=== PATIENT | female | born 1995 | race Caucasian/White ===

== ENCOUNTER 2023-03-28 11:11 | Outpatient (CLI) | payer OTHER, SELFPAY ==
[2023-03-28 11:36] VITALS: BP 115/65; PULSE 107; RESP 16; TEMP 37.1
[2023-03-28 11:37] VITALS: PULSE 104; O2SAT 100
[2023-03-28 12:31] LABS: Basophils Percent Auto 0.2 % (0.0-3.0); Eosinophils Percent Auto 0.1 % (0.0-7.0); Hematocrit 34.3 % (33.0-51.0); Hemoglobin* 10.4 gm/dL (12.0-16.0); Immature Granulocytes Pct Auto 0.8 %; Mean Corpuscular HGB Conc 30 gm/dL (32-36); Mean Corpuscular Hemoglobin 25 pg (26-34); Mean Corpuscular Volume 82 fL (80-100); Monocytes Percent Auto 3.4 % (0.0-11.0); Neutrophils Percent Auto 79.5 % (42.0-72.0); Platelet Count* 245 K/uL (140-440); RDW Coefficient of Variation % 15.4 % (11.5-15.5); White Blood Count* 11.64 K/uL (4.50-11.00)
[2023-03-28 12:37] LABS: Slide Review Reflex No
[2023-03-28 12:41] LABS: Chloride* 102 mmol/L (96-114); Sodium* 136 mmol/L (135-149)
[2023-03-28 12:42] LABS: Potassium* 4.1 mmol/L (3.6-5.1)
[2023-03-28 12:44] LABS: Anion Gap 23 mEq/L (7-15); Carbon Dioxide* 11 mmol/L (20-32); Creatinine* 0.6 mg/dL (0.5-1.5); Estimated Glomerular Filt Rate 127 ml/min
[2023-03-28 12:45] LABS: Blood Urea Nitrogen* 5 mg/dL (5-24); Calcium* 9.1 mg/dL (8.4-10.6); Glucose* 71 mg/dL (60-115)
--- NOTE | 2023-03-28 13:25 | P.OBO_ITS ---
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 She had a fever and muscle aches last week, along with fatigue. She tested negative for COVID on an at home test. Fever has resolved, but she still has no appetite, has occasional nausea, and feels weak and lightheaded. She has not been eating or drinking much. She denies any contractions, bleeding, loss of fluid. Baby is moving well. Her has been otherwise notable for iron deficiency anemia. She was prescribed liquid iron, but she is not taking this regularly. When given a liter of fluid to drink, she vomited. Meds Home Medications and Allergies Home Medications Medication Instructions Recorded Confirmed Type No Known Home Medications 01/30/23 01/30/23 History Allergies Allergy/AdvReac Type Severity Reaction Status Date / Time Sulfa (Sulfonamide Allergy Severe Chest Pain Verified 01/30/23 12:45 Antibiotics) [facility] Social History Smoking Status: Never smoker History History 2 Elective abortions Para 1 Spontaneous abortions Hx # Term Pregnancies Ectopic pregnancies Hx # Pregnancies Multiple births Number of Living Children 1 OB - H&P: Exam Physical Exam Vital signs: Temp Pulse Resp BP Pulse Ox 98.8 F 107 H 16 115/65 100 03/28/23 11:36 03/28/23 11:36 03/28/23 11:36 03/28/23 11:36 03/28/23 11:37 Narrative: Physical exam: General: Lying in bed, appears pale and tired Psych: Alert and oriented x3, full affect HEENT: Normocephalic, atraumatic Heart: Slightly tachy but regular rhythm, no murmur, rub, or gallop Lungs: Clear to auscultation bilaterally Abdomen: Soft, nontender, gravid, EFW 4.5 lb Lower extremities: No edema or erythema tracing: Baseline 135, accelerations present, no decelerations, moderate variability. Labs Labs Laboratory Tests 03/28/23 Range/Units 12:25 WBC 11.64 H (4.50-11.00) K/uL RBC 4.20 (4.00-5.20) m/uL Hgb 10.4 L (12.0-16.0) gm/dL Hct 34.3 (33.0-51.0) % MCV 82 (80-100) fL MCH 25 L (26-34) pg MCHC 30 L (32-36) gm/dL RDW Coeff of Martha 15.4 (11.5-15.5) % Plt Count 245 (140-440) K/uL Neut % (Auto) 79.5 H (42.0-72.0) % Lymph % (Auto) 16.0 L (20-44) % [place] % (Auto) 3.4 (0.0-11.0) % Eos % (Auto) 0.1 (0.0-7.0) % Baso % (Auto) 0.2 (0.0-3.0) % Neut # (Auto) 9.30 H (1.7-7.0) K/uL Lymph # (Auto) 1.90 (0.90-2.90) K/uL [place] # (Auto) 0.40 (0.00-0.90) K/UL Eos # (Auto) 0.00 (0.00-0.50) K/uL Baso # (Auto) 0.00 (0.00-0.30) K/uL Abs Immat Gran (auto) 0.10 (0.00-0.30) K/uL Imm/Tot Granulo (auto) 0.8 % Sodium 136 (135-149) mmol/L Potassium 4.1 (3.6-5.1) mmol/L Chloride 102 (96-114) mmol/L Carbon Dioxide 11 L (20-32) mmol/L Anion Gap 23 H (7-15) mEq/L BUN 5 (5-24) mg/dL Creatinine 0.6 (0.5-1.5) mg/dL Estimated GFR 127 ml/min Glucose 71 (60-115) mg/dL Calcium 9.1 (8.4-10.6) mg/dL TSH Pending Assessment and Plan Assessment and plan (1) Lightheadedness: Status: Acute Assessment and Plan: I suspect this is related to a combination of little oral intake and anemia. She is to be given a liter of IV fluid. I also recommended that she begin taking liquid iron every other day. (2) Post viral debility: Status: Acute (3) : Status: Acute (4) Anemia complicating : Status: Acute
[2023-03-28] MEDS: LACTATED RINGERS 1000 ML 1,000 ML IV (13:35)
--- NOTE | 2023-03-28 13:46 | PC.OBNST ---
NST Note NST Note Start: 03/28/23 11:19 Freq: ONCE Status: Active Protocol: Document 03/28/23 13:45 CUDDYH (Rec: 03/28/23 13:46 [id number]) NST Note 2 Para (# of births) 1 EDC 05/04/23 Gestational Age In Weeks & Days 34 Weeks & 5 Days Patient Presented with Complaint(s) of Other Reactive Yes Appropriate for Gestational Age Yes NUVIA De La Garza Date 03/28/23 Reactive Yes Appropriate for Gestational Age Yes NUVIA Diaz Date 03/28/23 OB NST charge Yes Complete NST Note via Write Note Yes The provider's electronic signature indicates the NST is reactive/appropriate for gestational age. *Note to provider: If an addendum is required, open the patient's chart and click on the note under the Nurse/Allied Health tab.
== END 2023-03-28 14:39 | disposition home or self-care (01) ==
LOC: OB OUT 11:13 → OB 11:13
PROVIDERS: Visit Provider Obstetrics & Gynecology
DX: O99.013 Anemia complicating pregnancy, third trimester (principal); R42 Dizziness and giddiness; R53.81 Other malaise; B94.8 Sequelae of other specified infectious and parasitic diseases; Z34.90 Encounter for supervision of normal pregnancy, unspecified, unspecified trimester; Z3A.34 34 weeks gestation of pregnancy
CPT/HCPCS: 36415; 59025; 80048; 84443; 85025; 99213; J7120

== ENCOUNTER 2023-03-29 15:47 | Inpatient (IN) | payer OTHER, SELFPAY ==
[2023-03-29] VITALS (63 sets, daily range): BP systolic 97–114; BP diastolic 58–78; PULSE 78–120; RESP 18–34; TEMP 36.5–36.9; O2SAT 93–100; BMI 25.3
--- NOTE | 2023-03-29 16:13 | CRLHL7_ITS ---
For Patients: As a result of the Cures Act, medical imaging exams and procedure reports are released immediately into your electronic medical record. You may view this report before your referring provider. If you have questions, please contact your health care provider. INDICATION: Cough. TECHNIQUE: Chest radiographs, two views. COMPARISON: None. FINDINGS: Lines/Tubes/Devices: None. Mediastinum: Normal cardiac silhouette. Lungs: No focal consolidation. Pleura: No pleural effusions or pneumothorax. Bones: No acute osseous abnormalities. Old healed lower right-sided rib fractures. Upper Abdomen: Unremarkable. IMPRESSION: No acute cardiopulmonary process. Dictated by Tim Fernandez MD @ 03/29/2023 5:12:28 PM (Electronically Signed)
[2023-03-29 16:30] LABS: Lactate* 0.8 mmol/L (0.5-1.9)
[2023-03-29 16:31] LABS: Basophils Percent Auto 0.1 % (0.0-3.0); Eosinophils Percent Auto 0.1 % (0.0-7.0); Hematocrit 35.6 % (33.0-51.0); Hemoglobin* 10.8 gm/dL (12.0-16.0); Immature Granulocytes Pct Auto 1.3 %; Lymphocytes Percent Auto 13.4 % (20-44); Mean Corpuscular HGB Conc 30 gm/dL (32-36); Mean Corpuscular Hemoglobin 25 pg (26-34); Mean Corpuscular Volume 82 fL (80-100); Monocytes Percent Auto 4.8 % (0.0-11.0); Neutrophils Percent Auto 80.3 % (42.0-72.0); Platelet Count* 252 K/uL (140-440); RDW Coefficient of Variation % 15.6 % (11.5-15.5); Red Blood Count 4.36 m/uL (4.00-5.20); White Blood Count* 11.87 K/uL (4.50-11.00)
[2023-03-29 16:35] LABS: Slide Review Reflex No
[2023-03-29 16:46] LABS: Appearance Urine Slightly Cloudy (Clear); Bilirubin Urine 1+ (Negative); Blood Urine Negative (Negative); Color Urine Yellow (Yellow); Glucose Urine Negative (Negative); Ketones Urine 4+ (Negative); Leukocyte Esterase Urine Negative (Negative); Nitrite Urine Negative (Negative); Protein Urine 1+ (Negative); Specific Gravity Urine >= 1.030 (1.000-1.030); pH Urine 5.5 (5.0-8.5)
[2023-03-29] MEDS: ONDANSETRON 2 MG/ML inj 4 MG IVP (16:53)
[2023-03-29] MEDS: 0.9 % SODIUM CHLORIDE 1000 ml 1,000 ML IV ×3 (16:53→21:51)
[2023-03-29 16:54] LABS: Chloride* 111 mmol/L (96-114)
[2023-03-29 16:55] LABS: Sodium* 136 mmol/L (135-149)
[2023-03-29 16:56] LABS: Albumin* 4.2 g/dL (3.3-5.0)
[2023-03-29 16:57] LABS: Creatinine* 0.7 mg/dL (0.5-1.5); Est. Creatinine Clearance* 114.01; Estimated Glomerular Filt Rate 122 ml/min
[2023-03-29 16:57] LABS: Amphetamine Screen Urine Negative (Negative); Barbiturate Screen Urine Negative (Negative); Benzodiazepines Screen Urine Negative (Negative); Cannabinoid Screen Urine Negative (Negative); Cocaine Screen Urine Negative (Negative); Methadone Screen Urine Negative (Negative); Methamphetamines Screen Urine Negative (Negative); Opiate Screen Urine Negative (Negative); Oxycodone Screen Urine Negative (Negative); Phencyclidine Screen Urine Negative (Negative); RBC Urine 0-2 (0-2); Tricyclic Antidepressant Urine Negative (Negative); WBC Urine 0-2 (0-5)
[2023-03-29 16:58] LABS: Blood Urea Nitrogen* 6 mg/dL (5-24); Glucose* 76 mg/dL (60-115)
[2023-03-29 16:58] LABS: Bacteria Urine Few; Squamous Epithelial Cell Urine Few (None-Few)
[2023-03-29 16:59] LABS: Alanine Aminotransferase* 16 U/L (4-35); Alkaline Phosphatase* 150 U/L (40-150); Aspartate Amino Transferase* 30 U/L (12-35); Bilirubin Direct* 0.3 mg/dL (0.0-0.5); Bilirubin Total* 0.8 mg/dL (0.1-1.5); Calcium* 9.2 mg/dL (8.4-10.6); Mono Screen* Negative (Negative); Total Protein* 8.8 g/dL (6.0-8.3)
[2023-03-29 17:01] LABS: PCR FLU A Negative PCR FLU A (Negative); PCR FLU B Negative PCR FLU B (Negative); PCR RSV Negative PCR RSV (Negative); SARS PCR* Negative SARS-CoV-2 (Negative)
[2023-03-29 17:01] LABS: C Reactive Protein* 1.3 mg/dL (0.5-1.0)
[2023-03-29 17:11] LABS: Anion Gap 20 mEq/L (7-15); Carbon Dioxide* < 5 mmol/L (20-32)
[2023-03-29 17:15] LABS: Procalcitonin* 0.07 ng/mL (<0.50)
[2023-03-29 17:34] LABS: Ethanol* < 0.01 % (0.01-0.03)
[2023-03-29 17:59] LABS: HCO3 VBG 7 mmol/L (21-28); PCO2 VBG 20 mmHG (40-50); PO2 VBG 41.4 mmHG (25-47)
[2023-03-29 18:05] LABS: Lipase* 165 U/L (23-300)
--- NOTE | 2023-03-29 18:08 | ED_ITS ---
HPI - Weakness General Date Seen: 03/29/23 Chief complaint: Weakness Stated complaint: fatigue, vomiting Time Seen by Provider: 03/29/23 15:55 Source: patient and family Mode of arrival: ambulatory Limitations: no limitations History of Present Illness HPI Narrative: Patient is a 27-year-old female, who is a at 34 weeks, was seen yesterday by Obstetrics, given 1 L of fluid on the floor, and then discharged home she continues to have nausea, vomiting, anywhere from 3-6 times in inability to take anything orally. Feels very weak come moving around, she denies a current fever, but mentions to me a week ago she had a fever up to 103.9. She has a slight cough, and multiple family members have this currently, she tested negative for COVID a week ago when she had the fever. She denies any abdominal pain at all, feels the baby moving, no diarrhea, no dysuria or frequency. Of urination. There is no rashes. She denies a sore throat, headache, neck stiffness, pain. She only takes pill once a day, she is not taking any other medications such as salicylates, she does not use alcohol, she has not been drinking any other or taking other herbal remedies. Denies any chest pain, shortness of breath, but she is very easily fatigued. Related Data Home Medications Medication Instructions Recorded Confirmed No Known Home Medications 01/30/23 01/30/23 Allergies Allergy/AdvReac Type Severity Reaction Status Date / Time Sulfa (Sulfonamide Allergy Severe Chest Pain Verified 03/29/23 15:55 Antibiotics) Review of Systems Status of ROS: Reports: 10 or more systems reviewed and unremarkable except as noted in History and below [facility] Social History Smoking Status: Never smoker How often do you have a drink containing alcohol: never AUDIT-C Alcohol total score: 0 Non-prescribed substance use: denies use Exam Narrative: Exam Narrative: Patient is seen in room 3 she is in no apparent distress, pupils are equal round reactive to light, there is no nystagmus or TMs are normal bilaterally, no meningismus, she does see kind of pale. No lymphadenopathy anterior posterior chains. Neck is supple, chest is good air entry bilateral with no wheezing crackles noted heart sounds no clicks murmurs or gallops her abdomen is soft and gravid, there is a little bit of a protrude and umbilicus. Bowel sounds are normal. She moves all extremities independently and well. No CVA tenderness. Skin reveals no petechiae rashes. Neurologically intact with no clonus. Const: Vital Signs, click to edit/add: Vital Signs - 24 hr 03/29/23 15:54 03/29/23 16:48 03/29/23 16:49 Temperature 97.8 F Pulse Rate [Right Pulse Oximeter] 78 105 H 112 H Pulse Rate [orthos tatic lying Left P ulse Oximeter] Pulse Rate [orthos tatic sitting Left Pulse Oximeter] Pulse Rate [orthos tatic standing Lef t Pulse Oximeter] Respiratory Rate 18 22 Blood Pressure [Ri ght Upper Arm] 108/69 107/74 112/78 Blood Pressure [or thostatic lying Ri ght Arm] Blood Pressure [or thostatic sitting Right Arm] Blood Pressure [or thostatic standing Right Arm] Pulse Oximetry 100 98 100 Oxygen Delivery Me thod Room Air 03/29/23 16:50 03/29/23 16:50 Temperature Pulse Rate [Right Pulse Oximeter] 120 H Pulse Rate [orthos tatic lying Left P ulse Oximeter] 105 H Pulse Rate [orthos tatic sitting Left Pulse Oximeter] 112 H Pulse Rate [orthos tatic standing Lef t Pulse Oximeter] 120 H Respiratory Rate Blood Pressure [Ri ght Upper Arm] 101/76 Blood Pressure [or thostatic lying Ri ght Arm] 107/74 Blood Pressure [or thostatic sitting Right Arm] 112/78 Blood Pressure [or thostatic standing Right Arm] 110/76 Pulse Oximetry 100 Oxygen Delivery Me thod Documenting provider has reviewed patient's vital signs: yes Course Course ED Course: So to the patient her partner I would recommend hospitalization and fluids at this point. I am not sure what is going on causing her acidosis. If this is purely from dehydration and poor oral intake. I consulted for admission from Obstetrics, I also suggested and agreed we will have from Internal Medicine see her. Please note I did do an ultrasound point of care echo. This showed globally normal heart function. No pericardial effusion, no right ventricular enlargement, but she did have a positive sniffing test of the proximal IVC indicating dehydration. Vital Signs Vital signs: Initial Vital Signs Temperature 97.8 F 03/29/23 15:54 Temperature Source Temporal Artery Scan 03/29/23 15:54 Pulse Rate 78 03/29/23 15:54 Pulse Rhythm Regular 03/29/23 15:54 Pulse Strength 3+ Normal 03/29/23 15:54 Respiratory Rate 18 03/29/23 15:54 Blood Pressure 108/69 03/29/23 15:54 Blood Pressure Mean 82 03/29/23 15:54 Blood Pressure Position Sitting 03/29/23 15:54 Pulse Oximetry 100 03/29/23 15:54 Oxygen Delivery Method Room Air 03/29/23 15:54 Vital Signs Temperature 97.8 F 03/29/23 15:54 Pulse Rate 78 03/29/23 15:54 Respiratory Rate 18 03/29/23 15:54 Blood Pressure 108/69 03/29/23 15:54 Pulse Oximetry 100 03/29/23 15:54 Oxygen Delivery Method Room Air 03/29/23 15:54 Temperature 97.8 F 03/29/23 15:54 Pulse Rate 105 H 03/29/23 16:50 Respiratory Rate 22 03/29/23 16:48 Blood Pressure 107/74 03/29/23 16:50 Pulse Oximetry 100 03/29/23 16:50 Oxygen Delivery Method Room Air 03/29/23 15:54 MDM - Weakness MDM Narrative Medical decision making narrative: Life-threatening differential diagnosis considered include stroke, coronary artery disease, pneumonia, and heart failure. Other differential diagnosis include but are not limited to electrolyte imbalances, anemia, medication reactions, and urinary tract infection Medical Records Attestation: I reviewed the patient's medical records. Lab Data Attestation: I reviewed the patient's lab results. Lab results narrative: Lab results show, an acidosis, with a total CO2 less than 5. White count slightly elevated 11.8700 in and not that worried about this hemoglobin was low normal at 10.8, venous blood gas as we tried to get an it arterial blood gas, this showed that she is acidotic. lactate was not elevated. Labs: Lab Results 03/29/23 03/29/23 03/29/23 Range/Units 16:14 16:25 16:40 WBC 11.87 H (4.50-11.00) K/uL RBC 4.36 (4.00-5.20) m/uL Hgb 10.8 L (12.0-16.0) gm/dL Hct 35.6 (33.0-51.0) % MCV 82 (80-100) fL MCH 25 L (26-34) pg MCHC 30 L (32-36) gm/dL RDW Coeff of Martha 15.6 H (11.5-15.5) % Plt Count 252 (140-440) K/uL Neut % (Auto) 80.3 H (42.0-72.0) % Lymph % (Auto) 13.4 L (20-44) % [place] % (Auto) 4.8 (0.0-11.0) % Eos % (Auto) 0.1 (0.0-7.0) % Baso % (Auto) 0.1 (0.0-3.0) % Neut # (Auto) 9.50 H (1.7-7.0) K/uL Lymph # (Auto) 1.60 (0.90-2.90) K/uL [place] # (Auto) 0.60 (0.00-0.90) K/UL Eos # (Auto) 0.00 (0.00-0.50) K/uL Baso # (Auto) 0.00 (0.00-0.30) K/uL Abs Immat Gran (auto) 0.20 (0.00-0.30) K/uL Imm/Tot Granulo (auto) 1.3 % VBG pH (7.32-7.43) VBG pCO2 (40-50) mmHG VBG pO2 (25-47) mmHG VBG HCO3 (21-28) mmol/L Sodium 136 (135-149) mmol/L Potassium 4.0 (3.6-5.1) mmol/L Chloride 111 (96-114) mmol/L Carbon Dioxide < 5 L* (20-32) mmol/L Anion Gap 20 H (7-15) mEq/L BUN 6 (5-24) mg/dL Creatinine 0.7 (0.5-1.5) mg/dL Estimated Creat Clear 114.01 Estimated GFR 122 ml/min Glucose 76 (60-115) mg/dL Lactate 0.8 (0.5-1.9) mmol/L Calcium 9.2 (8.4-10.6) mg/dL Total Bilirubin 0.8 (0.1-1.5) mg/dL Direct Bilirubin 0.3 (0.0-0.5) mg/dL AST 30 (12-35) U/L ALT 16 (4-35) U/L Alkaline Phosphatase 150 (40-150) U/L C-Reactive Protein 1.3 H (0.5-1.0) mg/dL Total Protein 8.8 H (6.0-8.3) g/dL Albumin 4.2 (3.3-5.0) g/dL Lipase 165 (23-300) U/L Procalcitonin 0.07 (<0.50) ng/mL Urine Color Yellow (Yellow) Urine Appearance Slightly Cloudy A (Clear) Urine pH 5.5 (5.0-8.5) Ur Specific [place] >= 1.030 (1.000-1.030) Urine Protein 1+ A (Negative) Urine Glucose (UA) Negative (Negative) Urine Ketones 4+ A (Negative) Urine Blood Negative (Negative) Urine Nitrite Negative (Negative) Urine Bilirubin 1+ A (Negative) Urine Urobilinogen 1.0 (0.2-1.0) Ur Leukocyte Esterase Negative (Negative) Urine RBC 0-2 (0-2) Urine WBC 0-2 (0-5) Ur Squamous Epith Cells Few (None-Few) Urine Bacteria Few A (None) Urine Opiates Screen Negative (Negative) Ur Oxycodone Screen Negative (Negative) Urine Methadone Screen Negative (Negative) Ur Propoxyphene Screen Negative (Negative) Ur Barbiturates Screen Negative (Negative) U Tricyclic Antidepress Negative (Negative) Ur Phencyclidine Scrn Negative (Negative) Ur Amphetamines Screen Negative (Negative) U Methamphetamines Scrn Negative (Negative) U Benzodiazepines Scrn Negative (Negative) Urine Cocaine Screen Negative (Negative) U Marijuana (THC) Screen Negative (Negative) Ur Drug Screen Comment See Note Ethyl Alcohol < 0.01 L (0.01-0.03) % SARS-CoV-2 (PCR) Negative SARS-CoV-2 (Negative) Monoscreen Negative (Negative) Influenza Type A (PCR) Negative PCR FLU A (Negative) Influenza Type B (PCR) Negative PCR FLU B (Negative) RSV (PCR) Negative PCR RSV (Negative) Lab Acknowledgement Test Added POC Troponin I (0.01-0.04) ng/ml 03/29/23 03/29/23 03/29/23 Range/Units 17:12 17:54 17:55 WBC (4.50-11.00) K/uL RBC (4.00-5.20) m/uL Hgb (12.0-16.0) gm/dL Hct (33.0-51.0) % MCV (80-100) fL MCH (26-34) pg MCHC (32-36) gm/dL RDW Coeff of Martha (11.5-15.5) % Plt Count (140-440) K/uL Neut % (Auto) (42.0-72.0) % Lymph % (Auto) (20-44) % [place] % (Auto) (0.0-11.0) % Eos % (Auto) (0.0-7.0) % Baso % (Auto) (0.0-3.0) % Neut # (Auto) (1.7-7.0) K/uL Lymph # (Auto) (0.90-2.90) K/uL [place] # (Auto) (0.00-0.90) K/UL Eos # (Auto) (0.00-0.50) K/uL Baso # (Auto) (0.00-0.30) K/uL Abs Immat Gran (auto) (0.00-0.30) K/uL Imm/Tot Granulo (auto) % VBG pH 7.170 L* (7.32-7.43) VBG pCO2 20 L (40-50) mmHG VBG pO2 41.4 (25-47) mmHG VBG HCO3 7 L (21-28) mmol/L Sodium (135-149) mmol/L Potassium (3.6-5.1) mmol/L Chloride (96-114) mmol/L Carbon Dioxide (20-32) mmol/L Anion Gap (7-15) mEq/L BUN (5-24) mg/dL Creatinine (0.5-1.5) mg/dL Estimated Creat Clear Estimated GFR ml/min Glucose (60-115) mg/dL Lactate (0.5-1.9) mmol/L Calcium (8.4-10.6) mg/dL Total Bilirubin (0.1-1.5) mg/dL Direct Bilirubin (0.0-0.5) mg/dL AST (12-35) U/L ALT (4-35) U/L Alkaline Phosphatase (40-150) U/L C-Reactive Protein (0.5-1.0) mg/dL Total Protein (6.0-8.3) g/dL Albumin (3.3-5.0) g/dL Lipase (23-300) U/L Procalcitonin (<0.50) ng/mL Urine Color (Yellow) Urine Appearance (Clear) Urine pH (5.0-8.5) Ur Specific [place] (1.000-1.030) Urine Protein (Negative) Urine Glucose (UA) (Negative) Urine Ketones (Negative) Urine Blood (Negative) Urine Nitrite (Negative) Urine Bilirubin (Negative) Urine Urobilinogen (0.2-1.0) Ur Leukocyte Esterase (Negative) Urine RBC (0-2) Urine WBC (0-5) Ur Squamous Epith Cells (None-Few) Urine Bacteria (None) Urine Opiates Screen (Negative) Ur Oxycodone Screen (Negative) Urine Methadone Screen (Negative) Ur Propoxyphene Screen (Negative) Ur Barbiturates Screen (Negative) U Tricyclic Antidepress (Negative) Ur Phencyclidine Scrn (Negative) Ur Amphetamines Screen (Negative) U Methamphetamines Scrn (Negative) U Benzodiazepines Scrn (Negative) Urine Cocaine Screen (Negative) U Marijuana (THC) Screen (Negative) Ur Drug Screen Comment Ethyl Alcohol (0.01-0.03) % SARS-CoV-2 (PCR) (Negative) Monoscreen (Negative) Influenza Type A (PCR) (Negative) Influenza Type B (PCR) (Negative) RSV (PCR) (Negative) Lab Acknowledgement Test Added POC Troponin I 0.00 L (0.01-0.04) ng/ml ABG Data ABG results: Venous blood gas shows she is acidotic, with hyperventilation compensation. Attestation: I personally reviewed and interpreted this ABG as follows: Imaging Data Chest x-ray: Attestation: I have reviewed the pertinent imaging results. My impression: No acute findings Radiologist's impression: No acute finding seen by Radiology ECG Data Attestation: I personally reviewed and interpreted this ECG as follows: ECG interpretation date: 03/29/23 Prior ECG tracings: not available for review Interpretation: EKG shows normal sinus rhythm, with a normal QT. mild tachycardia at 99. Discharge Plan Discharge Clinical Impression: Acute dehydration, , Metabolic acidosis Patient Disposition: Admit to OB Condition: Stable
[2023-03-29] MEDS: LACTATED RINGERS 1000 ML 1,000 ML 125 ML IV (18:31)
--- NOTE | 2023-03-29 19:02 | PM.OBHPAP1 ---
OB - H&P; HPI Antepartum History of Present Illness Time Seen by Provider: 19:02 Date Seen: 03/29/23 Chief complaint: fatigue, vomiting Narrative: Tri Lao is a 27 year old female at 34w6d by LMP (BERTRAM 05/04/23). She is receiving care with a home midwifery service in [place]. She presented yesterday to L&D for lightheadedness and malaise. She had a fever and muscle aches last week, along with fatigue. She was given 1L of IV fluid with improvement of symptoms. Her labs were significant for mild anemia to 10.4 and an anion gap of 23. Given her improvement in symptoms, she was discharged home. Patient return to the ED today with worsening nausea, lightheadedness, fatigue, and severe weakness. She had her initial evaluation in the emergency room. Labs today redemonstrated mild anemia at 10.8. However, labs were significant for anion gap metabolic acidosis. Urinalysis consistent with severe dehydration with 4+ ketones. She received 2L of NS in the ED. Toxicology negative. Viral panel also negative. LFTs within normal limits. CXRay within normal limits. I received a call from the ED requesting inpatient admission for her as they believe she'll need continued fluid management and to make sure she's improving. I did request a medicine consult for management of her anion gap metabolic acidosis. She was initially admitted to OB service with medicine consult. She reported the last time she ate anything was Friday. Her son was sick with a viral illness last week but no one else in the family is sick. She denies abnormal food, diarrhea, constipation, or fever. She has no known history of diabetes outside of or during . Although it is unclear if she's been screened for diabetes during any of her as she can not recall taking Glucola. I did find her records that showed 1 hr gtt was performed on 02/18/2023 with normal result (106 mg/dL). I ordered a repeat set of labs on admission to L&D and her labs were worsening. Patient requires intensive fluid management and an insulin drip. Discussed with rooming house inspector and our hospitalist Dr. Duron about her condition and where the best place for her to get 1:1 nursing care and treatment. I was informed that our CCU would be able to manage her condition. Dr. Duron kindly accepted the transfer and will be managing her euglycemic DKA as primary. OB will follow for recommendations regarding status/monitoring. Active movement. Denies Ctx, LOF, vaginal bleeding or abnormal vaginal discharge. Meds Home Medications and Allergies Home Medications Medication Instructions Recorded Confirmed Type No Known Home Medications 01/30/23 01/30/23 History Allergies Allergy/AdvReac Type Severity Reaction Status Date / Time Sulfa (Sulfonamide Allergy Severe Chest Pain Verified 03/29/23 15:55 Antibiotics) OB - H&P: Exam Physical Exam: Vital signs: Temp Pulse Resp BP Pulse Ox O2 Del Method 98.4 F 90 22 114/65 99 Room Air 03/29/23 18:31 03/29/23 18:31 03/29/23 18:31 03/29/23 18:31 03/29/23 18:45 03/29/23 15:54 Narrative: Physical exam: General: Acute distress, lethargic, grimacing with discomfort. Psych: Alert and oriented x4. HEENT: Normocephalic, atraumatic Neck: No cervical adenopathy, no thyromegaly Heart: Tachycardic. No murmur rub or gallop Lungs: Clear to auscultation bilaterally. Tachypnea. Abdomen: Appropriately gravid. Normoactive bowel sounds, soft, no tenderness, rebound, or guarding, no masses, no hepatosplenomegaly Back: No CVA tenderness bilaterally. Skin: Pallor. No lesions or rashes Lower extremities: No edema or erythema Pelvic exam: Deferred OB - Results Labs Labs: Short CBC 03/29/23 Range/Units 16:25 WBC 11.87 H (4.50-11.00) K/uL Hgb 10.8 L (12.0-16.0) gm/dL Hct 35.6 (33.0-51.0) % Plt Count 252 (140-440) K/uL BMP 03/29/23 16:25 Sodium 136 Potassium 4.0 Chloride 111 Carbon Dioxide < 5 L* BUN 6 Creatinine 0.7 Glucose 76 Calcium 9.2 Liver Function 03/29/23 Range/Units 16:25 Total Bilirubin 0.8 (0.1-1.5) mg/dL Direct Bilirubin 0.3 (0.0-0.5) mg/dL AST 30 (12-35) U/L ALT 16 (4-35) U/L Alkaline Phosphatase 150 (40-150) U/L Albumin 4.2 (3.3-5.0) g/dL Urine 03/29/23 Range/Units 16:40 Urine Color Yellow (Yellow) Urine Appearance Slightly Cloudy A (Clear) Urine pH 5.5 (5.0-8.5) Ur Specific [place] >= 1.030 (1.000-1.030) Urine Protein 1+ A (Negative) Urine Glucose (UA) Negative (Negative) OB - A/P Antepartum Assessment and Plan (1) Metabolic acidosis: Problem details: - euglycemic ketoacidosis Status: Acute (2) : Problem details: - on 03/29/2023 34.6 wks gestation by LMP - OB monitoring heart tones Status: Acute (3) Acute dehydration: Status: Acute (4) Anemia complicating : Status: Acute (5) Nausea & vomiting: Problem details: - likely due to ketoacidosis - check stool for H. Pylori Ag Status: Acute Assessment and Plan: - Reglan 10mg Q6H - Ondansetron 4mg Q6H PRN Plan Wellbeing NST: Initially with a couple of lates but reactive and reassuring after IV fluid and D5W was started. 130s bpm, moderate variability, multiple qualifying accels. [place]: Overall quiescent. Plan: Continuous monitoring until acidosis has resolved. Then, can consider QD NST. status is currently reactive and reassuring. Regardless, I would not operate on patient while she is severely acidotic as that would put her at high risk for mortality. I do not recommend BMZ series as she is beyond 34 weeks and high potency steroids could worsen patient's ketoacidosis. The risks outweigh the benefits for late term steroids.
[2023-03-29] MEDS: METOCLOPRAMIDE HCL 5 MG/ML INJ 10 MG IVP (20:00)
[2023-03-29] MEDS: 5 % DEXTROSE IN LAC RINGER'S 1,000 ML 125 ML IV ×2 (20:06→21:40)
--- NOTE | 2023-03-29 20:08 | P.IMCN_ITS ---
Date of Consult Patient: [facility] Patient Consult date: 03/29/23 Requesting Physician: [facility] Primary Care Provider: Not a Local Provider Consult Narrative Reason for consult: Persistent nausea and vomiting, euglycemic ketoacidosis Narrative: Tri Lao is a 27 year old woman at 34 6/7 weeks gestation by LMP, normally healthy, who presents with persistent nausea, intermittent vomiting, weakness, decreased oral intake. Has malaise and lightheadedness. Was seen yesterday by Dr. Copeland, nut sheller machine operator, who administered 1 L of IV fluids and discharged her home. Because the patient's symptoms are persistent she presents for reassessment. In our emergency department patient is found to have a metabolic acidosis with a venous blood gas demonstrating a pH of 7.17, pCO2 low at 20, PO2 41, HC03 of 7. She has a compensated metabolic acidosis with an anion gap of 20. Respiratory rate at rest is 22. Appears hypovolemic, with resting tachycardia. Has 4+ ketones in the urine. Does not have lactic acidosis. Has not consumed any alcohol. Denies ingestion of methanol, ethylene glycol, salicylates, toluene, diethylene glycol, propylene glycol. Denies any other home remedies or herbal preparations. Taking her multivitamin. Has not been taking her liquid iron supplementation routinely. Has not had diarrhea. Has not had renal di sorders previously. Review of Systems Status of ROS: Reports: 10 or more systems reviewed and unremarkable except as noted in History and below Narrative: Had a fever up to 103.9? F as recently as a week ago but that has since totally resolved. Had slight dry cough which has also resolved. Tested negative for COVID antigen in her home 1 week ago. Not exposed to others with COVID-19 either. Not exposed to others with other illnesses at this time that she is aware of. Denies myalgias or arthralgias. Has had intermittent headache. No rashes. Denies neurologic changes. Denies stiff neck. Denies chest heaviness, pressure, tightness, or pain. Denies syncope or near- syncope. Has had some lightheaded episodes particularly when trying to get up lately. Denies vertigo or dizziness. Has had a sense of her breathing feeling rapid. Denies dyspnea per se. Has not had icterus or jaundice. Has not had dark urine or randee-colored stools. Again denies diarrhea. Denies dysuria, urgency, frequency, hematuria. Denies trauma, injury, blood loss. No recent travel. No history of diabetes. No history of other metabolic disorder. [facility] Medical History ?Z34.90 - Encounter for supervision of normal , unspecified, unspecified trimester (ICD-10) Anemia complicating ?O99.019 - Anemia complicating , unspecified trimester (ICD-10) Social History Smoking Status: Never smoker How often do you have a drink containing alcohol: never AUDIT-C Alcohol total score: 0 Non-prescribed substance use: denies use Meds Home Medications and Allergies Home Medications Medication Instructions Recorded Confirmed Type No Known Home Medications 01/30/23 01/30/23 History Home Medication Comments: 1. multivitamin once daily. 2. Liquid iron for iron deficiency anemia. Allergies Allergy/AdvReac Type Severity Reaction Status Date / Time Sulfa (Sulfonamide Allergy Severe Chest Pain Verified 03/29/23 15:55 Antibiotics) Exam Narrative: Exam Narrative: Examined patient in her hospital room. Appears ill but not toxic. Vision and hearing are normal. Alert and oriented to self, place, time, situation. Friendly, cooperative, articulate. Mood and affect are congruent. Appropriately anxious. No icterus or conjunctival injection. Conjugate gaze. Dentition in fair repair. Dry buccal mucosa. Midline nasal septum. Neck is supple. Midline trachea. No head and neck lymphadenopathy. Lungs are clear to auscultation. No wheezing, rhonchi, or rales. Respiratory rate 22 at rest on room air. Heart tones with regular rhythm, normal S1-S2. Heart rate 110 at rest. Abdomen with active bowel sounds, soft. . heart monitors in place. Extremities without edema. Skin is warm, dry, intact. No petechiae, jaundice, rashes, cyanosis. No focal motor neurologic deficits. Cranial nerves 3-12 grossly normal. Const: Vital Signs, click to edit/add: Vital Signs - 24 hr 03/29/23 15:54 03/29/23 16:48 03/29/23 16:49 Temperature 97.8 F Pulse Rate Pulse Rate [Right Pulse Oximeter] 78 105 H 112 H Pulse Rate [orthos tatic lying Left P ulse Oximeter] Pulse Rate [orthos tatic sitting Left Pulse Oximeter] Pulse Rate [orthos tatic standing Lef t Pulse Oximeter] Respiratory Rate 18 22 Blood Pressure Blood Pressure [Ri ght Upper Arm] 108/69 107/74 112/78 Blood Pressure [or thostatic lying Ri ght Arm] Blood Pressure [or thostatic sitting Right Arm] Blood Pressure [or thostatic standing Right Arm] Pulse Oximetry 100 98 100 Oxygen Delivery Me thod Room Air 03/29/23 16:50 03/29/23 16:50 03/29/23 17:00 Temperature Pulse Rate Pulse Rate [Right Pulse Oximeter] 120 H 90 Pulse Rate [orthos tatic lying Left P ulse Oximeter] 105 H Pulse Rate [orthos tatic sitting Left Pulse Oximeter] 112 H Pulse Rate [orthos tatic standing Lef t Pulse Oximeter] 120 H Respiratory Rate Blood Pressure Blood Pressure [Ri ght Upper Arm] 101/76 100/58 L Blood Pressure [or thostatic lying Ri ght Arm] 107/74 Blood Pressure [or thostatic sitting Right Arm] 112/78 Blood Pressure [or thostatic standing Right Arm] 110/76 Pulse Oximetry 100 98 Oxygen Delivery Me thod 03/29/23 18:00 03/29/23 18:31 03/29/23 18:45 Temperature 98.2 F 98.4 F Pulse Rate 90 Pulse Rate [Right Pulse Oximeter] 94 Pulse Rate [orthos tatic lying Left P ulse Oximeter] Pulse Rate [orthos tatic sitting Left Pulse Oximeter] Pulse Rate [orthos tatic standing Lef t Pulse Oximeter] Respiratory Rate 22 Blood Pressure 114/65 Blood Pressure [Ri ght Upper Arm] 101/61 Blood Pressure [or thostatic lying Ri ght Arm] Blood Pressure [or thostatic sitting Right Arm] Blood Pressure [or thostatic standing Right Arm] Pulse Oximetry 98 98 99 Oxygen Delivery Me thod 03/29/23 19:09 03/29/23 19:14 03/29/23 19:19 Temperature Pulse Rate Pulse Rate [Right Pulse Oximeter] Pulse Rate [orthos tatic lying Left P ulse Oximeter] Pulse Rate [orthos tatic sitting Left Pulse Oximeter] Pulse Rate [orthos tatic standing Lef t Pulse Oximeter] Respiratory Rate Blood Pressure Blood Pressure [Ri ght Upper Arm] Blood Pressure [or thostatic lying Ri ght Arm] Blood Pressure [or thostatic sitting Right Arm] Blood Pressure [or thostatic standing Right Arm] Pulse Oximetry 98 98 97 Oxygen Delivery Me thod 03/29/23 19:24 03/29/23 19:29 03/29/23 19:34 Temperature Pulse Rate Pulse Rate [Right Pulse Oximeter] Pulse Rate [orthos tatic lying Left P ulse Oximeter] Pulse Rate [orthos tatic sitting Left Pulse Oximeter] Pulse Rate [orthos tatic standing Lef t Pulse Oximeter] Respiratory Rate Blood Pressure Blood Pressure [Ri ght Upper Arm] Blood Pressure [or thostatic lying Ri ght Arm] Blood Pressure [or thostatic sitting Right Arm] Blood Pressure [or thostatic standing Right Arm] Pulse Oximetry 97 98 99 Oxygen Delivery De thod 03/29/23 19:39 03/29/23 19:44 03/29/23 19:49 Temperature Pulse Rate Pulse Rate [Right Pulse Oximeter] Pulse Rate [orthos tatic lying Left P ulse Oximeter] Pulse Rate [orthos tatic sitting Left Pulse Oximeter] Pulse Rate [orthos tatic standing Lef t Pulse Oximeter] Respiratory Rate Blood Pressure Blood Pressure [Ri ght Upper Arm] Blood Pressure [or thostatic lying Ri ght Arm] Blood Pressure [or thostatic sitting Right Arm] Blood Pressure [or thostatic standing Right Arm] Pulse Oximetry 99 98 97 Oxygen Delivery De thod 03/29/23 19:54 03/29/23 19:59 03/29/23 20:04 Temperature Pulse Rate Pulse Rate [Right Pulse Oximeter] Pulse Rate [orthos tatic lying Left P ulse Oximeter] Pulse Rate [orthos tatic sitting Left Pulse Oximeter] Pulse Rate [orthos tatic standing Lef t Pulse Oximeter] Respiratory Rate Blood Pressure Blood Pressure [Ri ght Upper Arm] Blood Pressure [or thostatic lying Ri ght Arm] Blood Pressure [or thostatic sitting Right Arm] Blood Pressure [or thostatic standing Right Arm] Pulse Oximetry 98 98 98 Oxygen Delivery Me thod 03/29/23 20:07 Temperature Pulse Rate 99 Pulse Rate [Right Pulse Oximeter] Pulse Rate [orthos tatic lying Left P ulse Oximeter] Pulse Rate [orthos tatic sitting Left Pulse Oximeter] Pulse Rate [orthos tatic standing Lef t Pulse Oximeter] Respiratory Rate 22 Blood Pressure 105/67 Blood Pressure [Ri ght Upper Arm] Blood Pressure [or thostatic lying Ri ght Arm] Blood Pressure [or thostatic sitting Right Arm] Blood Pressure [or thostatic standing Right Arm] Pulse Oximetry 98 Oxygen Delivery Me thod Documenting provider has reviewed patient's vital signs: yes Labs Labs: Short CBC 03/29/23 Range/Units 16:25 WBC 11.87 H (4.50-11.00) K/uL Hgb 10.8 L (12.0-16.0) gm/dL Hct 35.6 (33.0-51.0) % Plt Count 252 (140-440) K/uL BMP 03/29/23 16:25 Sodium 136 Potassium 4.0 Chloride 111 Carbon Dioxide < 5 L* BUN 6 Creatinine 0.7 Glucose 76 Calcium 9.2 Liver Function 03/29/23 Range/Units 16:25 Total Bilirubin 0.8 (0.1-1.5) mg/dL Direct Bilirubin 0.3 (0.0-0.5) mg/dL AST 30 (12-35) U/L ALT 16 (4-35) U/L Alkaline Phosphatase 150 (40-150) U/L Albumin 4.2 (3.3-5.0) g/dL Urine 03/29/23 Range/Units 16:40 Urine Color Yellow (Yellow) Urine Appearance Slightly Cloudy A (Clear) Urine pH 5.5 (5.0-8.5) Ur Specific [place] >= 1.030 (1.000-1.030) Urine Protein 1+ A (Negative) Urine Glucose (UA) Negative (Negative) Assessment and Plan Assessment and plan (1) Nausea & vomiting: Problem comment: - likely due to ketoacidosis - check stool for H. Pylori Ag Status: Acute (2) Ketoacidosis: Problem comment: - Euglycemic ketoacidosis, due to hypovolemia and - Does not have diagnosis of diabetes mellitus Status: Acute (3) Metabolic acidosis: Problem comment: - euglycemic ketoacidosis Status: Acute (4) : Problem comment: - on 35 wks gestation by LMP - OB monitoring heart tones Status: Acute (5) Acute dehydration: Status: Acute (6) Anemia complicating : Status: Acute Plan 1. Reviewed impression with patient, her nurses, and her nut sheller machine operator Dr. Fernandez. Recommend transfer to the intensive care unit to initiate DKA protocol. Dr. Fernandez and her labor and delivery nurses will continue to monitor the fetus. 2. Volume replacement. Recommend lactated Ringer's. Started 125 mL/hour, striving to achieve a urine output of greater than or equal to 50 mL/hour. 3. Begin D5 given that blood sugars are less than 200 mg/dL are ready. Goal is to prevent hypoglycemia and facilitate insulin infusion to normalize the anion gap. 4. Begin insulin infusion and administer until ketoacidosis is resolved. I ordered a beta hydroxybutyrate acid level, which is a send out lab. Meanwhile monitor with anion gap, repeat urine dipsticks, and clinically the smell of ketones in her breath. Target glucose 100-150 mg/dL. 5. Add potassium chloride to the IV fluid at 20 mEq per L. Monitor serum potassium and administer additional potassium replacement preferably orally but if not possible then intravenously in effort to maintain serum potassium greater than or equal to 4. 6. Check stool for Helicobacter pylori antigen given the persistent nausea and vomiting. 7. Will follow with nut sheller machine operator while patient is in hospital.
[2023-03-29 20:14] LABS: PO2 VBG 62.6 mmHG (25-47)
[2023-03-29 20:32] LABS: Chloride* 115 mmol/L (96-114); Sodium* 137 mmol/L (135-149)
[2023-03-29 20:35] LABS: Creatinine* 0.6 mg/dL (0.5-1.5); Est. Creatinine Clearance* 133.01; Estimated Glomerular Filt Rate 127 ml/min
[2023-03-29 20:36] LABS: Blood Urea Nitrogen* 5 mg/dL (5-24); Calcium* 8.7 mg/dL (8.4-10.6); Glucose* 69 mg/dL (60-115)
[2023-03-29 20:39] LABS: Anion Gap 17 mEq/L (7-15); Carbon Dioxide* < 5 mmol/L (20-32)
[2023-03-29 20:40] LABS: PCO2 VBG < 15 mmHG (40-50); pH VBG 7.224 (7.32-7.43)
[2023-03-29 21:08] LABS: HCO3 VBG 7 mmol/L (21-28); PCO2 VBG 20 mmHG (40-50); PO2 VBG 36.9 mmHG (25-47)
[2023-03-29 21:23] LABS: Chloride* 114 mmol/L (96-114); Sodium* 137 mmol/L (135-149)
[2023-03-29 21:26] LABS: Anion Gap 17 mEq/L (7-15); Blood Urea Nitrogen* 5 mg/dL (5-24); Calcium* 8.7 mg/dL (8.4-10.6); Creatinine* 0.6 mg/dL (0.5-1.5); Est. Creatinine Clearance* 133.01; Estimated Glomerular Filt Rate 127 ml/min; Glucose* 145 mg/dL (60-115)
[2023-03-29 21:28] LABS: Carbon Dioxide* 6 mmol/L (20-32)
[2023-03-29 21:29] LABS: pH VBG 7.185 (7.32-7.43)
[2023-03-29] MEDS: INSULIN INF 100 UNIT/100 ML 100 UNIT/100 ML BAG IVPB (21:50)
[2023-03-29 23:27] LABS: HCO3 VBG 9 mmol/L (21-28); pH VBG 7.313 (7.32-7.43)
[2023-03-29 23:30] LABS: PCO2 VBG 17 mmHG (40-50)
[2023-03-29 23:45] LABS: Chloride* 119 mmol/L (96-114); Potassium* 3.4 mmol/L (3.6-5.1); Sodium* 137 mmol/L (135-149)
[2023-03-29 23:47] LABS: Creatinine* 0.6 mg/dL (0.5-1.5); Est. Creatinine Clearance* 133.01; Estimated Glomerular Filt Rate 127 ml/min; Magnesium* 1.9 mg/dL (1.5-2.6)
[2023-03-29 23:48] LABS: Anion Gap 11 mEq/L (7-15); Blood Urea Nitrogen* 5 mg/dL (5-24); Glucose* 90 mg/dL (60-115); Phosphorus* 2.2 mg/dL (2.5-4.5)
[2023-03-29 23:50] LABS: Carbon Dioxide* 7 mmol/L (20-32)
[2023-03-30] VITALS (132 sets, daily range): BP systolic 91–124; BP diastolic 53–80; PULSE 79–194; RESP 16–22; TEMP 36.6–36.9; O2SAT 95–99
[2023-03-30] MEDS: POTASSIUM CHLORIDE 10 MEQ/100 ML PIGGYBACK 100 MEQ IVPB ×2 (00:22→01:43)
[2023-03-30] MEDS: 0.9 % SODIUM CHLORIDE 250 ml IV ×2 (00:35→08:07)
[2023-03-30 01:00] LABS: Anion Gap 10 mEq/L (7-15); Blood Urea Nitrogen* 4 mg/dL (5-24); Creatinine* 0.5 mg/dL (0.5-1.5); Est. Creatinine Clearance* 159.62; Estimated Glomerular Filt Rate 133 ml/min; Glucose* 159 mg/dL (60-115); Phosphorus* 2.2 mg/dL (2.5-4.5)
[2023-03-30 01:01] LABS: Magnesium* 1.9 mg/dL (1.5-2.6)
[2023-03-30 01:02] LABS: Carbon Dioxide* 8 mmol/L (20-32)
[2023-03-30 01:42] LABS: HCO3 VBG 10 mmol/L (21-28); PO2 VBG 62.8 mmHG (25-47); pH VBG 7.325 (7.32-7.43)
[2023-03-30] MEDS: METOCLOPRAMIDE HCL 5 MG/ML INJ 10 MG IVP ×4 (01:42→21:41)
[2023-03-30 01:43] LABS: PCO2 VBG 19 mmHG (40-50)
[2023-03-30] MEDS: 5 % DEXTROSE IN LAC RINGER'S 1,000 ML 706 ML IV (01:44)
[2023-03-30 01:57] LABS: Chloride* 119 mmol/L (96-114); Sodium* 137 mmol/L (135-149)
[2023-03-30 03:54] LABS: HCO3 VBG 11 mmol/L (21-28); PCO2 VBG 20 mmHG (40-50); pH VBG 7.365 (7.32-7.43)
[2023-03-30 03:55] LABS: Hemoglobin* 8.2 gm/dL (12.0-16.0); Mean Corpuscular HGB Conc 32 gm/dL (32-36); Mean Corpuscular Hemoglobin 25 pg (26-34); Mean Corpuscular Volume 80 fL (80-100); Platelet Count* 196 K/uL (140-440); Red Blood Count 3.26 m/uL (4.00-5.20); Slide Review Reflex No; White Blood Count* 8.73 K/uL (4.50-11.00)
[2023-03-30 04:12] LABS: Albumin* 2.8 g/dL (3.3-5.0); Potassium* 3.6 mmol/L (3.6-5.1); Sodium* 137 mmol/L (135-149)
[2023-03-30 04:13] LABS: Chloride* 119 mmol/L (96-114)
[2023-03-30 04:15] LABS: Anion Gap 8 mEq/L (7-15); Blood Urea Nitrogen* 4 mg/dL (5-24); Carbon Dioxide* 10 mmol/L (20-32); Creatinine* 0.5 mg/dL (0.5-1.5); Est. Creatinine Clearance* 159.62; Estimated Glomerular Filt Rate 133 ml/min; Glucose* 87 mg/dL (60-115); Phosphorus* 2.2 mg/dL (2.5-4.5)
[2023-03-30 04:16] LABS: Calcium* 8.1 mg/dL (8.4-10.6); Magnesium* 1.9 mg/dL (1.5-2.6)
--- NOTE | 2023-03-30 06:58 | PC.NURSE ---
END OF SHIFT NOTE: PT IS 35WK , PLEASANT AND COOPERATIVE. A&Ox3. PT DENIES CP, SOB, N/V. C/O MALAISE.?AMBULATES INDEPENDENTLY. TACHYPNEA RESOLVED WITH CONTINUOUS CORRECTION OF LABS. VSS WITH SOFT BP?S ON RA; AFEBRILE. PT DID NOT SLEEP MUCH OVERNIGHT; ?I CANNOT GET COMFORTABLE?. INSULIN RUNNING PER PROTOCOL. CALL LIGHT WITHIN PT?S REACH.?
[2023-03-30 08:00] LABS: HCO3 VBG 13 mmol/L (21-28); PCO2 VBG 24 mmHG (40-50); PO2 VBG 35.2 mmHG (25-47); pH VBG 7.358 (7.32-7.43)
[2023-03-30 08:18] LABS: Albumin* 2.9 g/dL (3.3-5.0); Chloride* 120 mmol/L (96-114); Potassium* 3.7 mmol/L (3.6-5.1); Sodium* 137 mmol/L (135-149)
[2023-03-30 08:21] LABS: Anion Gap 5 mEq/L (7-15); Blood Urea Nitrogen* 3 mg/dL (5-24); Carbon Dioxide* 12 mmol/L (20-32); Creatinine* 0.5 mg/dL (0.5-1.5); Est. Creatinine Clearance* 159.62; Estimated Glomerular Filt Rate 133 ml/min; Glucose* 86 mg/dL (60-115); Phosphorus* 2.3 mg/dL (2.5-4.5)
[2023-03-30 08:22] LABS: Calcium* 8.3 mg/dL (8.4-10.6); Magnesium* 1.9 mg/dL (1.5-2.6)
[2023-03-30 10:04] LABS: H pylori Ag Stool* POSITIVE (Negative)
--- NOTE | 2023-03-30 10:12 | PM.OBCN1 ---
OB - CN: HPI Date of Consult Time Seen by Provider: 10:12 Date Seen: 03/30/23 Patient: Other Consult date: 03/30/23 Requesting Physician: Yosi Duron MD Primary Care Provider: Not a Local Provider Consult Narrative Narrative: The patient is a 27 year old at 35.0 weeks gestation that was admitted to the [facility] on 03/29/23 for euglycemic ketoacidosis 2/2 nausea/vomiting/starvation. She was admitted to CCU for acute management due to severe anion gap metabolic acidosis. Overnight, her anion gap close and her acidosis resolved with appropriate treatment of fluids and insulin. This morning she endorses significant improvement in her wellness. She feels hungry and has been able to eat oat meal with nausea or vomiting. Given that she is tolerating PO, the plan per CCU team is to deescalate and stop IV fluids/insulin. She has no concerns. Very active movement. Denies Ctx, LOF, vaginal bleeding or abnormal vaginal discharge. History History 2 Elective abortions Para 1 Spontaneous abortions Hx # Term Pregnancies Ectopic pregnancies Hx # Pregnancies Multiple births Number of Living Children 0 PFSH PFSH Medical History ?Z34.90 - Encounter for supervision of normal , unspecified, unspecified trimester (ICD-10) Anemia complicating ?O99.019 - Anemia complicating , unspecified trimester (ICD-10) Social History Smoking Status: Never smoker How often do you have a drink containing alcohol: never AUDIT-C Alcohol total score: 0 Non-prescribed substance use: denies use Meds Home Medications and Allergies Home Medications Medication Instructions Recorded Confirmed Type ferrous sulfate 15 mg iron (75 1 ml PO DAILY PRN 03/30/23 03/30/23 History mg)/mL oral drops (Huy-In-Belkys) vit no.95-ferrous 1 tab PO DAILY 03/30/23 03/30/23 History fumarate 28 mg-folic acid 800 mcg tablet () Allergies Allergy/AdvReac Type Severity Reaction Status Date / Time Sulfa (Sulfonamide Allergy Severe Chest Pain Verified 03/29/23 15:55 Antibiotics) OB - H&P: Exam Physical Exam: Vital signs: Temp Pulse Resp BP Pulse Ox O2 Del Method 97.8 F 95 20 93/57 L 98 Room Air 03/30/23 08:00 03/30/23 08:00 03/30/23 08:22 03/30/23 08:00 03/30/23 09:14 03/30/23 08:22 Narrative: Physical exam: General: No acute distress. Smiling Psych: Alert and oriented x4, full affect HEENT: Normocephalic, atraumatic Heart: Regular rate and rhythm, no murmur rub or gallop Lungs: Clear to auscultation bilaterally Abdomen: Appropriately gravid. Normoactive bowel sounds, soft, no tenderness, rebound, or guarding Skin: No lesions or rashes Lower extremities: No edema or erythema Pelvic exam: Deferred OB - Results Labs Labs: Short CBC 03/29/23 03/30/23 Range/Units 16:25 03:45 WBC 11.87 H 8.73 (4.50-11.00) K/uL Hgb 10.8 L 8.2 L (12.0-16.0) gm/dL Hct 35.6 26.0 L (33.0-51.0) % Plt Count 252 196 (140-440) K/uL BMP 03/29/23 03/29/23 03/29/23 16:25 20:09 21:04 Sodium 136 137 137 Potassium 4.0 4.0 4.0 Chloride 111 115 H 114 Carbon Dioxide < 5 L* < 5 L* 6 L* BUN 6 5 5 Creatinine 0.7 0.6 0.6 Glucose 76 69 145 H Calcium 9.2 8.7 8.7 03/29/23 03/30/23 03/30/23 23:24 01:40 ASSISTANT CHILD CARE TEACHER 03:45 Sodium 137 137 137 Potassium 3.4 L 4.0 3.6 Chloride 119 H 119 H 119 H Carbon Dioxide 7 L* 8 L* 10 L BUN 5 4 L 4 L Creatinine 0.6 0.5 0.5 Glucose 90 159 H 87 Calcium 8.0 L 8.0 L 8.1 L 03/30/23 07:51 Sodium 137 Potassium 3.7 Chloride 120 H Carbon Dioxide 12 L BUN 3 L Creatinine 0.5 Glucose 86 Calcium 8.3 L Liver Function 03/29/23 03/29/2303/30/23 Range/Units 16:25 23:24 01:40 ASSISTANT CHILD CARE TEACHER Total Bilirubin 0.8 (0.1-1.5) mg/dL Direct Bilirubin 0.3 (0.0-0.5) mg/dL AST 30 (12-35) U/L ALT 16 (4-35) U/L Alkaline Phosphatase 150 (40-150) U/L Albumin 4.2 3.0 L 3.0 L (3.3-5.0) g/dL 03/30/23 03/30/23 Range/Units 03:45 07:51 Total Bilirubin (0.1-1.5) mg/dL Direct Bilirubin (0.0-0.5) mg/dL AST (12-35) U/L ALT (4-35) U/L Alkaline Phosphatase (40-150) U/L Albumin 2.8 L 2.9 L (3.3-5.0) g/dL Urine 03/29/23 Range/Units 16:40 Urine Color Yellow (Yellow) Urine Appearance Slightly Cloudy A (Clear) Urine pH 5.5 (5.0-8.5) Ur Specific [place] >= 1.030 (1.000-1.030) Urine Protein 1+ A (Negative) Urine Glucose (UA) Negative (Negative) OB - CN: A/P Assessment and Plan (1) Metabolic acidosis: Problem details: - euglycemic ketoacidosis Status: Acute (2) : Problem details: - on 03/29/2023 34.6 wks gestation by LMP - OB monitoring heart tones Status: Acute (3) Acute dehydration: Status: Acute (4) Anemia complicating : Status: Acute (5) Nausea & vomiting: Problem details: - likely due to ketoacidosis - check stool for H. Pylori Ag Status: Acute Plan Wellbeing - Will discontinue continuous monitoring as patient's acidosis has resolved and she no long needs IV insulin - Plan for QD NST for the remainder of hospitalization NST overnight: 120s bpm baseline, moderate variability, multiple qualifying accel, rare variable decels early in the hospital course that spontaneously resolved. Overall, reactive and reassuring. [place]: Quiescent - Currently, no obstetrical concerns Rest per primary team.
[2023-03-30 12:23] LABS: HCO3 VBG 13 mmol/L (21-28); PCO2 VBG 22 mmHG (40-50); PO2 VBG 65.1 mmHG (25-47); pH VBG 7.382 (7.32-7.43)
--- NOTE | 2023-03-30 12:28 | P.IMPN_ITS ---
Progress Note: A&P Assessment and plan (1) Nausea & vomiting: Status: Acute Assessment and Plan: Significantly improved with resuscitation. Now tolerating PO well. H pylori Ag in stool was obtained and positive, but suspect N/V was due to combination of starvation ketoacidosis which now seems resolved and possibly H pylori. -Continue symptomatic treatment PRN (2) H. pylori infection: Status: Acute Assessment and Plan: Patient presented with severe metabolic acidosis likely secondary to nausea and vomiting as above. H pylori stool antigen is positive. Per my literature review, treatment during may be controversial. At this point, her N/V seems fairly well controlled. -Will discuss treatment with outcomes analyst (3) Ketoacidosis: Problem details: - Euglycemic ketoacidosis, due to hypovolemia and - Does not have diagnosis of diabetes mellitus Status: Acute Assessment and Plan: Resolved (4) Metabolic acidosis: Problem details: - euglycemic ketoacidosis, suspect initially triggered by acute illness, then perpetuated with ongoing N/V due to acidosis Status: Acute Assessment and Plan: Resolved S/P resuscitation with insulin gtt and D5LR. Acidosis has resolved. Bicarb remains low, but slowly correcting -Continue to monitor with diet advancement (5) : Problem details: - on 03/29/2023 35 wks gestation by LMP - OB monitoring heart tones Status: Acute Assessment and Plan: Doing well. Appreciate OB following daily NST (6) Acute dehydration: Status: Acute Assessment and Plan: Resolved. Continue monitoring with diet advancement (7) Anemia complicating : Status: Acute Assessment and Plan: Hgb dropped overnight, presumably due to extensive IVF resuscitation. However, with new H pylori infection, raises concern for possible ulcer. -Continue to monitor Hgb off IVF Subjective Date Seen: 03/30/23 Interval history: Patient is seen and examined. She was admitted overnight to CCU due to severe AG metabolic acidosis. She was placed on an insulin drip with D5 containing IVF and did well overnight. Anion gap closed and acidosis resolved. She was weaned off of insulin and fluids. Patient was feeling significantly improved this morning and was able to tolerate a regular diet for breakfast. She is taking PO well without nausea/vomiting. OB has been following for monitoring which has been reassuring. Patient denies any pain or nausea. States she is feeling significantly improved, but still tired as she didn't get much sleep overnight. EXAM General: Well appearing, but pale. No distress HEENT: MMM CV: RRR, soft systolic murmur present Resp: Breathing is comfortable and unlabored. No wheezes/crackles Abd: Gravid, bowel sounds normal Extremities: No edema or cyanosis Exam Const: Vital Signs, click to edit/add: Vital Signs - 24 hr 03/29/23 15:54 03/29/23 16:48 03/29/23 16:49 Temperature 97.8 F Pulse Rate Pulse Rate [Pulse Oximeter] Pulse Rate [Right Pulse Oximeter] 78 105 H 112 H Pulse Rate [orthos tatic lying Left P ulse Oximeter] Pulse Rate [orthos tatic sitting Left Pulse Oximeter] Pulse Rate [orthos tatic standing Lef t Pulse Oximeter] Respiratory Rate 18 22 Blood Pressure Blood Pressure [Ri ght Arm] Blood Pressure [Ri ght Upper Arm] 108/69 107/74 112/78 Blood Pressure [or thostatic lying Ri ght Arm] Blood Pressure [or thostatic sitting Right Arm] Blood Pressure [or thostatic standing Right Arm] Pulse Oximetry 100 98 100 Oxygen Delivery Me thod Room Air 03/29/23 16:50 03/29/23 16:50 03/29/23 17:00 Temperature Pulse Rate Pulse Rate [Pulse Oximeter] Pulse Rate [Right Pulse Oximeter] 120 H 90 Pulse Rate [orthos tatic lying Left P ulse Oximeter] 105 H Pulse Rate [orthos tatic sitting Left Pulse Oximeter] 112 H Pulse Rate [orthos tatic standing Lef t Pulse Oximeter] 120 H Respiratory Rate Blood Pressure Blood Pressure [Ri ght Arm] Blood Pressure [Ri ght Upper Arm] 101/76 100/58 L Blood Pressure [or thostatic lying Ri ght Arm] 107/74 Blood Pressure [or thostatic sitting Right Arm] 112/78 Blood Pressure [or thostatic standing Right Arm] 110/76 Pulse Oximetry 100 98 Oxygen Delivery Me thod 03/29/23 18:00 03/29/23 18:31 03/29/23 18:45 Temperature 98.2 F 98.4 F Pulse Rate 90 Pulse Rate [Pulse Oximeter] Pulse Rate [Right Pulse Oximeter] 94 Pulse Rate [orthos tatic lying Left P ulse Oximeter] Pulse Rate [orthos tatic sitting Left Pulse Oximeter] Pulse Rate [orthos tatic standing Lef t Pulse Oximeter] Respiratory Rate 22 Blood Pressure 114/65 Blood Pressure [Ri ght Arm] Blood Pressure [Ri ght Upper Arm] 101/61 Blood Pressure [or thostatic lying Ri ght Arm] Blood Pressure [or thostatic sitting Right Arm] Blood Pressure [or thostatic standing Right Arm] Pulse Oximetry 98 98 99 Oxygen Delivery Me thod 03/29/23 19:09 03/29/23 19:14 03/29/23 19:19 Temperature Pulse Rate Pulse Rate [Pulse Oximeter] Pulse Rate [Right Pulse Oximeter] Pulse Rate [orthos tatic lying Left P ulse Oximeter] Pulse Rate [orthos tatic sitting Left Pulse Oximeter] Pulse Rate [orthos tatic standing Lef t Pulse Oximeter] Respiratory Rate Blood Pressure Blood Pressure [Ri ght Arm] Blood Pressure [Ri ght Upper Arm] Blood Pressure [or thostatic lying Ri ght Arm] Blood Pressure [or thostatic sitting Right Arm] Blood Pressure [or thostatic standing Right Arm] Pulse Oximetry 98 98 97 Oxygen Delivery Wi thod 03/29/23 19:24 03/29/23 19:29 03/29/23 19:34 Temperature Pulse Rate Pulse Rate [Pulse Oximeter] Pulse Rate [Right Pulse Oximeter] Pulse Rate [orthos tatic lying Left P ulse Oximeter] Pulse Rate [orthos tatic sitting Left Pulse Oximeter] Pulse Rate [orthos tatic standing Lef t Pulse Oximeter] Respiratory Rate Blood Pressure Blood Pressure [Ri ght Arm] Blood Pressure [Ri ght Upper Arm] Blood Pressure [or thostatic lying Ri ght Arm] Blood Pressure [or thostatic sitting Right Arm] Blood Pressure [or thostatic standing Right Arm] Pulse Oximetry 97 98 99 Oxygen Delivery Wi thod 03/29/23 19:39 03/29/23 19:44 03/29/23 19:49 Temperature Pulse Rate Pulse Rate [Pulse Oximeter] Pulse Rate [Right Pulse Oximeter] Pulse Rate [orthos tatic lying Left P ulse Oximeter] Pulse Rate [orthos tatic sitting Left Pulse Oximeter] Pulse Rate [orthos tatic standing Lef t Pulse Oximeter] Respiratory Rate Blood Pressure Blood Pressure [Ri ght Arm] Blood Pressure [Ri ght Upper Arm] Blood Pressure [or thostatic lying Ri ght Arm] Blood Pressure [or thostatic sitting Right Arm] Blood Pressure [or thostatic standing Right Arm] Pulse Oximetry 99 98 97 Oxygen Delivery Wi thod 03/29/23 19:54 03/29/23 19:59 03/29/23 20:04 Temperature Pulse Rate Pulse Rate [Pulse Oximeter] Pulse Rate [Right Pulse Oximeter] Pulse Rate [orthos tatic lying Left P ulse Oximeter] Pulse Rate [orthos tatic sitting Left Pulse Oximeter] Pulse Rate [orthos tatic standing Lef t Pulse Oximeter] Respiratory Rate Blood Pressure Blood Pressure [Ri ght Arm] Blood Pressure [Ri ght Upper Arm] Blood Pressure [or thostatic lying Ri ght Arm] Blood Pressure [or thostatic sitting Right Arm] Blood Pressure [or thostatic standing Right Arm] Pulse Oximetry 98 98 98 Oxygen Delivery Wi thod 03/29/23 20:07 03/29/23 20:09 03/29/23 20:17 Temperature 97.7 F Pulse Rate 99 Pulse Rate [Pulse Oximeter] Pulse Rate [Right Pulse Oximeter] Pulse Rate [orthos tatic lying Left P ulse Oximeter] Pulse Rate [orthos tatic sitting Left Pulse Oximeter] Pulse Rate [orthos tatic standing Lef t Pulse Oximeter] Respiratory Rate 22 Blood Pressure 105/67 Blood Pressure [Ri ght Arm] Blood Pressure [Ri ght Upper Arm] Blood Pressure [or thostatic lying Ri ght Arm] Blood Pressure [or thostatic sitting Right Arm] Blood Pressure [or thostatic standing Right Arm] Pulse Oximetry 98 99 98 Oxygen Delivery Wi thod 03/29/23 20:22 03/29/23 20:27 03/29/23 20:32 Temperature Pulse Rate Pulse Rate [Pulse Oximeter] Pulse Rate [Right Pulse Oximeter] Pulse Rate [orthos tatic lying Left P ulse Oximeter] Pulse Rate [orthos tatic sitting Left Pulse Oximeter] Pulse Rate [orthos tatic standing Lef t Pulse Oximeter] Respiratory Rate Blood Pressure Blood Pressure [Ri ght Arm] Blood Pressure [Ri ght Upper Arm] Blood Pressure [or thostatic lying Ri ght Arm] Blood Pressure [or thostatic sitting Right Arm] Blood Pressure [or thostatic standing Right Arm] Pulse Oximetry 97 98 97 Oxygen Delivery Wi thod 03/29/23 20:37 03/29/23 20:56 03/29/23 21:01 Temperature Pulse Rate Pulse Rate [Pulse Oximeter] Pulse Rate [Right Pulse Oximeter] Pulse Rate [orthos tatic lying Left P ulse Oximeter] Pulse Rate [orthos tatic sitting Left Pulse Oximeter] Pulse Rate [orthos tatic standing Lef t Pulse Oximeter] Respiratory Rate Blood Pressure Blood Pressure [Ri ght Arm] Blood Pressure [Ri ght Upper Arm] Blood Pressure [or thostatic lying Ri ght Arm] Blood Pressure [or thostatic sitting Right Arm] Blood Pressure [or thostatic standing Right Arm] Pulse Oximetry 97 98 97 Oxygen Delivery Me thod 03/29/23 21:05 03/29/23 21:06 03/29/23 21:11 Temperature Pulse Rate Pulse Rate [Pulse Oximeter] Pulse Rate [Right Pulse Oximeter] Pulse Rate [orthos tatic lying Left P ulse Oximeter] Pulse Rate [orthos tatic sitting Left Pulse Oximeter] Pulse Rate [orthos tatic standing Lef t Pulse Oximeter] Respiratory Rate Blood Pressure Blood Pressure [Ri ght Arm] Blood Pressure [Ri ght Upper Arm] Blood Pressure [or thostatic lying Ri ght Arm] Blood Pressure [or thostatic sitting Right Arm] Blood Pressure [or thostatic standing Right Arm] Pulse Oximetry 93 94 99 Oxygen Delivery Wi thod 03/29/23 21:22 03/29/23 21:26 03/29/23 21:27 Temperature Pulse Rate Pulse Rate [Pulse Oximeter] Pulse Rate [Right Pulse Oximeter] Pulse Rate [orthos tatic lying Left P ulse Oximeter] Pulse Rate [orthos tatic sitting Left Pulse Oximeter] Pulse Rate [orthos tatic standing Lef t Pulse Oximeter] Respiratory Rate Blood Pressure Blood Pressure [Ri ght Arm] Blood Pressure [Ri ght Upper Arm] Blood Pressure [or thostatic lying Ri ght Arm] Blood Pressure [or thostatic sitting Right Arm] Blood Pressure [or thostatic standing Right Arm] Pulse Oximetry 98 94 97 Oxygen Delivery Me thod 03/29/23 21:32 03/29/23 21:37 03/29/23 21:42 Temperature Pulse Rate Pulse Rate [Pulse Oximeter] Pulse Rate [Right Pulse Oximeter] Pulse Rate [orthos tatic lying Left P ulse Oximeter] Pulse Rate [orthos tatic sitting Left Pulse Oximeter] Pulse Rate [orthos tatic standing Lef t Pulse Oximeter] Respiratory Rate Blood Pressure Blood Pressure [Ri ght Arm] Blood Pressure [Ri ght Upper Arm] Blood Pressure [or thostatic lying Ri ght Arm] Blood Pressure [or thostatic sitting Right Arm] Blood Pressure [or thostatic standing Right Arm] Pulse Oximetry 99 98 97 Oxygen Delivery Me thod 03/29/23 21:47 03/29/23 21:52 03/29/23 21:57 Temperature Pulse Rate Pulse Rate [Pulse Oximeter] Pulse Rate [Right Pulse Oximeter] Pulse Rate [orthos tatic lying Left P ulse Oximeter] Pulse Rate [orthos tatic sitting Left Pulse Oximeter] Pulse Rate [orthos tatic standing Lef t Pulse Oximeter] Respiratory Rate Blood Pressure Blood Pressure [Ri ght Arm] Blood Pressure [Ri ght Upper Arm] Blood Pressure [or thostatic lying Ri ght Arm] Blood Pressure [or thostatic sitting Right Arm] Blood Pressure [or thostatic standing Right Arm] Pulse Oximetry 97 97 96 Oxygen Delivery Me thod 03/29/23 22:00 03/29/23 22:02 03/29/23 22:07 Temperature Pulse Rate Pulse Rate [Pulse Oximeter] 104 H Pulse Rate [Right Pulse Oximeter] Pulse Rate [orthos tatic lying Left P ulse Oximeter] Pulse Rate [orthos tatic sitting Left Pulse Oximeter] Pulse Rate [orthos tatic standing Lef t Pulse Oximeter] Respiratory Rate 28 H Blood Pressure Blood Pressure [Ri ght Arm] 99/60 Blood Pressure [Ri ght Upper Arm] Blood Pressure [or thostatic lying Ri ght Arm] Blood Pressure [or thostatic sitting Right Arm] Blood Pressure [or thostatic standing Right Arm] Pulse Oximetry 97 98 97 Oxygen Delivery Me thod Room Air 03/29/23 22:12 03/29/23 22:17 03/29/23 22:22 Temperature Pulse Rate Pulse Rate [Pulse Oximeter] Pulse Rate [Right Pulse Oximeter] Pulse Rate [orthos tatic lying Left P ulse Oximeter] Pulse Rate [orthos tatic sitting Left Pulse Oximeter] Pulse Rate [orthos tatic standing Lef t Pulse Oximeter] Respiratory Rate Blood Pressure Blood Pressure [Ri ght Arm] Blood Pressure [Ri ght Upper Arm] Blood Pressure [or thostatic lying Ri ght Arm] Blood Pressure [or thostatic sitting Right Arm] Blood Pressure [or thostatic standing Right Arm] Pulse Oximetry 97 96 98 Oxygen Delivery Me thod 03/29/23 22:29 03/29/23 22:35 03/29/23 22:40 Temperature Pulse Rate Pulse Rate [Pulse Oximeter] Pulse Rate [Right Pulse Oximeter] Pulse Rate [orthos tatic lying Left P ulse Oximeter] Pulse Rate [orthos tatic sitting Left Pulse Oximeter] Pulse Rate [orthos tatic standing Lef t Pulse Oximeter] Respiratory Rate Blood Pressure Blood Pressure [Ri ght Arm] Blood Pressure [Ri ght Upper Arm] Blood Pressure [or thostatic lying Ri ght Arm] Blood Pressure [or thostatic sitting Right Arm] Blood Pressure [or thostatic standing Right Arm] Pulse Oximetry 98 97 97 Oxygen Delivery Me thod 03/29/23 22:45 03/29/23 22:50 03/29/23 22:55 Temperature Pulse Rate Pulse Rate [Pulse Oximeter] Pulse Rate [Right Pulse Oximeter] Pulse Rate [orthos tatic lying Left P ulse Oximeter] Pulse Rate [orthos tatic sitting Left Pulse Oximeter] Pulse Rate [orthos tatic standing Lef t Pulse Oximeter] Respiratory Rate Blood Pressure Blood Pressure [Ri ght Arm] Blood Pressure [Ri ght Upper Arm] Blood Pressure [or thostatic lying Ri ght Arm] Blood Pressure [or thostatic sitting Right Arm] Blood Pressure [or thostatic standing Right Arm] Pulse Oximetry 97 98 98 Oxygen Delivery Me thod 03/29/23 23:00 03/29/23 23:00 03/29/23 23:00 Temperature 98.0 F Pulse Rate Pulse Rate [Pulse Oximeter] 106 H Pulse Rate [Right Pulse Oximeter] Pulse Rate [orthos tatic lying Left P ulse Oximeter] Pulse Rate [orthos tatic sitting Left Pulse Oximeter] Pulse Rate [orthos tatic standing Lef t Pulse Oximeter] Respiratory Rate 34 H Blood Pressure Blood Pressure [Ri ght Arm] 97/62 Blood Pressure [Ri ght Upper Arm] Blood Pressure [or thostatic lying Ri ght Arm] Blood Pressure [or thostatic sitting Right Arm] Blood Pressure [or thostatic standing Right Arm] Pulse Oximetry 98 97 97 Oxygen Delivery Wi thod Room Air Room Air 03/29/23 23:05 03/29/23 23:10 03/29/23 23:15 Temperature Pulse Rate Pulse Rate [Pulse Oximeter] Pulse Rate [Right Pulse Oximeter] Pulse Rate [orthos tatic lying Left P ulse Oximeter] Pulse Rate [orthos tatic sitting Left Pulse Oximeter] Pulse Rate [orthos tatic standing Lef t Pulse Oximeter] Respiratory Rate Blood Pressure Blood Pressure [Ri ght Arm] Blood Pressure [Ri ght Upper Arm] Blood Pressure [or thostatic lying Ri ght Arm] Blood Pressure [or thostatic sitting Right Arm] Blood Pressure [or thostatic standing Right Arm] Pulse Oximetry 98 98 98 Oxygen Delivery Me thod 03/29/23 23:20 03/29/23 23:35 03/29/23 23:40 Temperature Pulse Rate Pulse Rate [Pulse Oximeter] Pulse Rate [Right Pulse Oximeter] Pulse Rate [orthos tatic lying Left P ulse Oximeter] Pulse Rate [orthos tatic sitting Left Pulse Oximeter] Pulse Rate [orthos tatic standing Lef t Pulse Oximeter] Respiratory Rate Blood Pressure Blood Pressure [Ri ght Arm] Blood Pressure [Ri ght Upper Arm] Blood Pressure [or thostatic lying Ri ght Arm] Blood Pressure [or thostatic sitting Right Arm] Blood Pressure [or thostatic standing Right Arm] Pulse Oximetry 98 97 97 Oxygen Delivery Wi thod 03/29/23 23:45 03/29/23 23:50 03/29/23 23:55 Temperature Pulse Rate Pulse Rate [Pulse Oximeter] Pulse Rate [Right Pulse Oximeter] Pulse Rate [orthos tatic lying Left P ulse Oximeter] Pulse Rate [orthos tatic sitting Left Pulse Oximeter] Pulse Rate [orthos tatic standing Lef t Pulse Oximeter] Respiratory Rate Blood Pressure Blood Pressure [Ri ght Arm] Blood Pressure [Ri ght Upper Arm] Blood Pressure [or thostatic lying Ri ght Arm] Blood Pressure [or thostatic sitting Right Arm] Blood Pressure [or thostatic standing Right Arm] Pulse Oximetry 98 99 98 Oxygen Delivery Me thod 03/30/23 00:00 03/30/23 00:00 03/30/23 00:01 Temperature Pulse Rate Pulse Rate [Pulse Oximeter] 99 Pulse Rate [Right Pulse Oximeter] Pulse Rate [orthos tatic lying Left P ulse Oximeter] Pulse Rate [orthos tatic sitting Left Pulse Oximeter] Pulse Rate [orthos tatic standing Lef t Pulse Oximeter] Respiratory Rate 22 Blood Pressure Blood Pressure [Ri ght Arm] 100/59 L Blood Pressure [Ri ght Upper Arm] Blood Pressure [or thostatic lying Ri ght Arm] Blood Pressure [or thostatic sitting Right Arm] Blood Pressure [or thostatic standing Right Arm] Pulse Oximetry 97 98 98 Oxygen Delivery Me thod Room Air 03/30/23 00:05 03/30/23 00:10 03/30/23 00:15 Temperature Pulse Rate Pulse Rate [Pulse Oximeter] Pulse Rate [Right Pulse Oximeter] Pulse Rate [orthos tatic lying Left P ulse Oximeter] Pulse Rate [orthos tatic sitting Left Pulse Oximeter] Pulse Rate [orthos tatic standing Lef t Pulse Oximeter] Respiratory Rate Blood Pressure Blood Pressure [Ri ght Arm] Blood Pressure [Ri ght Upper Arm] Blood Pressure [or thostatic lying Ri ght Arm] Blood Pressure [or thostatic sitting Right Arm] Blood Pressure [or thostatic standing Right Arm] Pulse Oximetry 97 97 97 Oxygen Delivery Me thod 03/30/23 00:20 03/30/23 00:25 03/30/23 00:30 Temperature Pulse Rate Pulse Rate [Pulse Oximeter] Pulse Rate [Right Pulse Oximeter] Pulse Rate [orthos tatic lying Left P ulse Oximeter] Pulse Rate [orthos tatic sitting Left Pulse Oximeter] Pulse Rate [orthos tatic standing Lef t Pulse Oximeter] Respiratory Rate Blood Pressure Blood Pressure [Ri ght Arm] Blood Pressure [Ri ght Upper Arm] Blood Pressure [or thostatic lying Ri ght Arm] Blood Pressure [or thostatic sitting Right Arm] Blood Pressure [or thostatic standing Right Arm] Pulse Oximetry 97 97 98 Oxygen Delivery Me thod 03/30/23 00:35 03/30/23 00:40 03/30/23 00:45 Temperature Pulse Rate Pulse Rate [Pulse Oximeter] Pulse Rate [Right Pulse Oximeter] Pulse Rate [orthos tatic lying Left P ulse Oximeter] Pulse Rate [orthos tatic sitting Left Pulse Oximeter] Pulse Rate [orthos tatic standing Lef t Pulse Oximeter] Respiratory Rate Blood Pressure Blood Pressure [Ri ght Arm] Blood Pressure [Ri ght Upper Arm] Blood Pressure [or thostatic lying Ri ght Arm] Blood Pressure [or thostatic sitting Right Arm] Blood Pressure [or thostatic standing Right Arm] Pulse Oximetry 97 97 98 Oxygen Delivery Me thod 03/30/23 00:50 03/30/23 00:55 03/30/23 01:00 CDT Temperature 98.4 F Pulse Rate Pulse Rate [Pulse Oximeter] 96 Pulse Rate [Right Pulse Oximeter] Pulse Rate [orthos tatic lying Left P ulse Oximeter] Pulse Rate [orthos tatic sitting Left Pulse Oximeter] Pulse Rate [orthos tatic standing Lef t Pulse Oximeter] Respiratory Rate 20 Blood Pressure Blood Pressure [Ri ght Arm] 91/56 L Blood Pressure [Ri ght Upper Arm] Blood Pressure [or thostatic lying Ri ght Arm] Blood Pressure [or thostatic sitting Right Arm] Blood Pressure [or thostatic standing Right Arm] Pulse Oximetry 97 98 97 Oxygen Delivery Wi thod Room Air 03/30/23 01:00 FELT HAT MELLOWING MACHINE OPERATOR 03/30/23 01:00 FELT HAT MELLOWING MACHINE OPERATOR 03/30/23 01:04 FELT HAT MELLOWING MACHINE OPERATOR Temperature 98.5 F Pulse Rate Pulse Rate [Pulse Oximeter] 109 H Pulse Rate [Right Pulse Oximeter] Pulse Rate [orthos tatic lying Left P ulse Oximeter] Pulse Rate [orthos tatic sitting Left Pulse Oximeter] Pulse Rate [orthos tatic standing Lef t Pulse Oximeter] Respiratory Rate 18 Blood Pressure Blood Pressure [Ri ght Arm] 104/67 Blood Pressure [Ri ght Upper Arm] Blood Pressure [or thostatic lying Ri ght Arm] Blood Pressure [or thostatic sitting Right Arm] Blood Pressure [or thostatic standing Right Arm] Pulse Oximetry 97 98 98 Oxygen Delivery Wi thod Room Air 03/30/23 01:05 FELT HAT MELLOWING MACHINE OPERATOR 03/30/23 01:09 FELT HAT MELLOWING MACHINE OPERATOR 03/30/23 01:10 FELT HAT MELLOWING MACHINE OPERATOR Temperature Pulse Rate Pulse Rate [Pulse Oximeter] Pulse Rate [Right Pulse Oximeter] Pulse Rate [orthos tatic lying Left P ulse Oximeter] Pulse Rate [orthos tatic sitting Left Pulse Oximeter] Pulse Rate [orthos tatic standing Lef t Pulse Oximeter] Respiratory Rate Blood Pressure Blood Pressure [Ri ght Arm] Blood Pressure [Ri ght Upper Arm] Blood Pressure [or thostatic lying Ri ght Arm] Blood Pressure [or thostatic sitting Right Arm] Blood Pressure [or thostatic standing Right Arm] Pulse Oximetry 98 99 97 Oxygen Delivery Me thod 03/30/23 01:14 FELT HAT MELLOWING MACHINE OPERATOR 03/30/23 01:15 FELT HAT MELLOWING MACHINE OPERATOR 03/30/23 01:19 FELT HAT MELLOWING MACHINE OPERATOR Temperature Pulse Rate Pulse Rate [Pulse Oximeter] Pulse Rate [Right Pulse Oximeter] Pulse Rate [orthos tatic lying Left P ulse Oximeter] Pulse Rate [orthos tatic sitting Left Pulse Oximeter] Pulse Rate [orthos tatic standing Lef t Pulse Oximeter] Respiratory Rate Blood Pressure Blood Pressure [Ri ght Arm] Blood Pressure [Ri ght Upper Arm] Blood Pressure [or thostatic lying Ri ght Arm] Blood Pressure [or thostatic sitting Right Arm] Blood Pressure [or thostatic standing Right Arm] Pulse Oximetry 98 98 96 Oxygen Delivery Me thod 03/30/23 01:20 FELT HAT MELLOWING MACHINE OPERATOR 03/30/23 01:24 FELT HAT MELLOWING MACHINE OPERATOR 03/30/23 01:29 FELT HAT MELLOWING MACHINE OPERATOR Temperature Pulse Rate Pulse Rate [Pulse Oximeter] Pulse Rate [Right Pulse Oximeter] Pulse Rate [orthos tatic lying Left P ulse Oximeter] Pulse Rate [orthos tatic sitting Left Pulse Oximeter] Pulse Rate [orthos tatic standing Lef t Pulse Oximeter] Respiratory Rate Blood Pressure Blood Pressure [Ri ght Arm] Blood Pressure [Ri ght Upper Arm] Blood Pressure [or thostatic lying Ri ght Arm] Blood Pressure [or thostatic sitting Right Arm] Blood Pressure [or thostatic standing Right Arm] Pulse Oximetry 98 96 96 Oxygen Delivery Me thod 03/30/23 01:32 FELT HAT MELLOWING MACHINE OPERATOR 03/30/23 01:34 FELT HAT MELLOWING MACHINE OPERATOR 03/30/23 01:39 FELT HAT MELLOWING MACHINE OPERATOR Temperature Pulse Rate Pulse Rate [Pulse Oximeter] Pulse Rate [Right Pulse Oximeter] Pulse Rate [orthos tatic lying Left P ulse Oximeter] Pulse Rate [orthos tatic sitting Left Pulse Oximeter] Pulse Rate [orthos tatic standing Lef t Pulse Oximeter] Respiratory Rate Blood Pressure Blood Pressure [Ri ght Arm] Blood Pressure [Ri ght Upper Arm] Blood Pressure [or thostatic lying Ri ght Arm] Blood Pressure [or thostatic sitting Right Arm] Blood Pressure [or thostatic standing Right Arm] Pulse Oximetry 98 96 96 Oxygen Delivery Me thod 03/30/23 01:41 FELT HAT MELLOWING MACHINE OPERATOR 03/30/23 01:44 FELT HAT MELLOWING MACHINE OPERATOR 03/30/23 01:46 FELT HAT MELLOWING MACHINE OPERATOR Temperature Pulse Rate Pulse Rate [Pulse Oximeter] Pulse Rate [Right Pulse Oximeter] Pulse Rate [orthos tatic lying Left P ulse Oximeter] Pulse Rate [orthos tatic sitting Left Pulse Oximeter] Pulse Rate [orthos tatic standing Lef t Pulse Oximeter] Respiratory Rate Blood Pressure Blood Pressure [Ri ght Arm] Blood Pressure [Ri ght Upper Arm] Blood Pressure [or thostatic lying Ri ght Arm] Blood Pressure [or thostatic sitting Right Arm] Blood Pressure [or thostatic standing Right Arm] Pulse Oximetry 98 96 98 Oxygen Delivery Me thod 03/30/23 01:49 FELT HAT MELLOWING MACHINE OPERATOR 03/30/23 01:51 FELT HAT MELLOWING MACHINE OPERATOR 03/30/23 01:54 FELT HAT MELLOWING MACHINE OPERATOR Temperature Pulse Rate Pulse Rate [Pulse Oximeter] Pulse Rate [Right Pulse Oximeter] Pulse Rate [orthos tatic lying Left P ulse Oximeter] Pulse Rate [orthos tatic sitting Left Pulse Oximeter] Pulse Rate [orthos tatic standing Lef t Pulse Oximeter] Respiratory Rate Blood Pressure Blood Pressure [Ri ght Arm] Blood Pressure [Ri ght Upper Arm] Blood Pressure [or thostatic lying Ri ght Arm] Blood Pressure [or thostatic sitting Right Arm] Blood Pressure [or thostatic standing Right Arm] Pulse Oximetry 96 98 95 Oxygen Delivery Me thod 03/30/23 01:56 FELT HAT MELLOWING MACHINE OPERATOR 03/30/23 01:59 FELT HAT MELLOWING MACHINE OPERATOR 03/30/23 02:00 Temperature 98.2 F Pulse Rate Pulse Rate [Pulse Oximeter] 101 H Pulse Rate [Right Pulse Oximeter] Pulse Rate [orthos tatic lying Left P ulse Oximeter] Pulse Rate [orthos tatic sitting Left Pulse Oximeter] Pulse Rate [orthos tatic standing Lef t Pulse Oximeter] Respiratory Rate 18 Blood Pressure Blood Pressure [Ri ght Arm] 96/60 Blood Pressure [Ri ght Upper Arm] Blood Pressure [or thostatic lying Ri ght Arm] Blood Pressure [or thostatic sitting Right Arm] Blood Pressure [or thostatic standing Right Arm] Pulse Oximetry 98 95 97 Oxygen Delivery Me thod Room Air 03/30/23 02:04 03/30/23 02:09 03/30/23 02:14 Temperature Pulse Rate Pulse Rate [Pulse Oximeter] Pulse Rate [Right Pulse Oximeter] Pulse Rate [orthos tatic lying Left P ulse Oximeter] Pulse Rate [orthos tatic sitting Left Pulse Oximeter] Pulse Rate [orthos tatic standing Lef t Pulse Oximeter] Respiratory Rate Blood Pressure Blood Pressure [Ri ght Arm] Blood Pressure [Ri ght Upper Arm] Blood Pressure [or thostatic lying Ri ght Arm] Blood Pressure [or thostatic sitting Right Arm] Blood Pressure [or thostatic standing Right Arm] Pulse Oximetry 95 95 96 Oxygen Delivery Wi thod 03/30/23 02:19 03/30/23 02:24 03/30/23 02:29 Temperature Pulse Rate Pulse Rate [Pulse Oximeter] Pulse Rate [Right Pulse Oximeter] Pulse Rate [orthos tatic lying Left P ulse Oximeter] Pulse Rate [orthos tatic sitting Left Pulse Oximeter] Pulse Rate [orthos tatic standing Lef t Pulse Oximeter] Respiratory Rate Blood Pressure Blood Pressure [Ri ght Arm] Blood Pressure [Ri ght Upper Arm] Blood Pressure [or thostatic lying Ri ght Arm] Blood Pressure [or thostatic sitting Right Arm] Blood Pressure [or thostatic standing Right Arm] Pulse Oximetry 96 95 96 Oxygen Delivery Wi thod 03/30/23 02:34 03/30/23 02:42 03/30/23 02:47 Temperature Pulse Rate Pulse Rate [Pulse Oximeter] Pulse Rate [Right Pulse Oximeter] Pulse Rate [orthos tatic lying Left P ulse Oximeter] Pulse Rate [orthos tatic sitting Left Pulse Oximeter] Pulse Rate [orthos tatic standing Lef t Pulse Oximeter] Respiratory Rate Blood Pressure Blood Pressure [Ri ght Arm] Blood Pressure [Ri ght Upper Arm] Blood Pressure [or thostatic lying Ri ght Arm] Blood Pressure [or thostatic sitting Right Arm] Blood Pressure [or thostatic standing Right Arm] Pulse Oximetry 96 99 [facility] 03/30/23 02:57 03/30/23 03:00 Temperature 98.4 F Pulse Rate Pulse Rate [Pulse Oximeter] 95 Pulse Rate [Right Pulse Oximeter] Pulse Rate [orthos tatic lying Left P ulse Oximeter] Pulse Rate [orthos tatic sitting Left Pulse Oximeter] Pulse Rate [orthos tatic standing Lef t Pulse Oximeter] Respiratory Rate 18 Blood Pressure Blood Pressure [Ri ght Arm] 98/59 L Blood Pressure [Ri ght Upper Arm] Blood Pressure [or thostatic lying Ri ght Arm] Blood Pressure [or thostatic sitting Right Arm] Blood Pressure [or thostatic standing Right Arm] Pulse Oximetry 97 97 98 Oxygen Delivery Me thod Room Air 03/30/23 03:02 03/30/23 03:07 03/30/23 03:12 Temperature Pulse Rate Pulse Rate [Pulse Oximeter] Pulse Rate [Right Pulse Oximeter] Pulse Rate [orthos tatic lying Left P ulse Oximeter] Pulse Rate [orthos tatic sitting Left Pulse Oximeter] Pulse Rate [orthos tatic standing Lef t Pulse Oximeter] Respiratory Rate Blood Pressure Blood Pressure [Ri ght Arm] Blood Pressure [Ri ght Upper Arm] Blood Pressure [or thostatic lying Ri ght Arm] Blood Pressure [or thostatic sitting Right Arm] Blood Pressure [or thostatic standing Right Arm] Pulse Oximetry 98 98 97 Oxygen Delivery Me thod 03/30/23 03:17 03/30/23 03:22 03/30/23 03:27 Temperature Pulse Rate Pulse Rate [Pulse Oximeter] Pulse Rate [Right Pulse Oximeter] Pulse Rate [orthos tatic lying Left P ulse Oximeter] Pulse Rate [orthos tatic sitting Left Pulse Oximeter] Pulse Rate [orthos tatic standing Lef t Pulse Oximeter] Respiratory Rate Blood Pressure Blood Pressure [Ri ght Arm] Blood Pressure [Ri ght Upper Arm] Blood Pressure [or thostatic lying Ri ght Arm] Blood Pressure [or thostatic sitting Right Arm] Blood Pressure [or thostatic standing Right Arm] Pulse Oximetry 97 98 98 Oxygen Delivery Me thod 03/30/23 03:32 03/30/23 03:37 03/30/23 03:42 Temperature Pulse Rate Pulse Rate [Pulse Oximeter] Pulse Rate [Right Pulse Oximeter] Pulse Rate [orthos tatic lying Left P ulse Oximeter] Pulse Rate [orthos tatic sitting Left Pulse Oximeter] Pulse Rate [orthos tatic standing Lef t Pulse Oximeter] Respiratory Rate Blood Pressure Blood Pressure [Ri ght Arm] Blood Pressure [Ri ght Upper Arm] Blood Pressure [or thostatic lying Ri ght Arm] Blood Pressure [or thostatic sitting Right Arm] Blood Pressure [or thostatic standing Right Arm] Pulse Oximetry 97 97 97 Oxygen Delivery Me thod 03/30/23 03:52 03/30/23 03:57 03/30/23 04:00 Temperature 98.3 F Pulse Rate Pulse Rate [Pulse Oximeter] 92 Pulse Rate [Right Pulse Oximeter] Pulse Rate [orthos tatic lying Left P ulse Oximeter] Pulse Rate [orthos tatic sitting Left Pulse Oximeter] Pulse Rate [orthos tatic standing Lef t Pulse Oximeter] Respiratory Rate 18 Blood Pressure Blood Pressure [Ri ght Arm] 91/55 L Blood Pressure [Ri ght Upper Arm] Blood Pressure [or thostatic lying Ri ght Arm] Blood Pressure [or thostatic sitting Right Arm] Blood Pressure [or thostatic standing Right Arm] Pulse Oximetry 97 97 97 Oxygen Delivery Wi thod Room Air 03/30/23 04:02 03/30/23 04:07 03/30/23 04:12 Temperature Pulse Rate Pulse Rate [Pulse Oximeter] Pulse Rate [Right Pulse Oximeter] Pulse Rate [orthos tatic lying Left P ulse Oximeter] Pulse Rate [orthos tatic sitting Left Pulse Oximeter] Pulse Rate [orthos tatic standing Lef t Pulse Oximeter] Respiratory Rate Blood Pressure Blood Pressure [Ri ght Arm] Blood Pressure [Ri ght Upper Arm] Blood Pressure [or thostatic lying Ri ght Arm] Blood Pressure [or thostatic sitting Right Arm] Blood Pressure [or thostatic standing Right Arm] Pulse Oximetry 97 99 98 Oxygen Delivery Wi thod 03/30/23 04:17 03/30/23 04:22 03/30/23 04:27 Temperature Pulse Rate Pulse Rate [Pulse Oximeter] Pulse Rate [Right Pulse Oximeter] Pulse Rate [orthos tatic lying Left P ulse Oximeter] Pulse Rate [orthos tatic sitting Left Pulse Oximeter] Pulse Rate [orthos tatic standing Lef t Pulse Oximeter] Respiratory Rate Blood Pressure Blood Pressure [Ri ght Arm] Blood Pressure [Ri ght Upper Arm] Blood Pressure [or thostatic lying Ri ght Arm] Blood Pressure [or thostatic sitting Right Arm] Blood Pressure [or thostatic standing Right Arm] Pulse Oximetry 98 97 97 Oxygen Delivery Me thod 03/30/23 04:32 03/30/23 04:37 03/30/23 04:42 Temperature Pulse Rate Pulse Rate [Pulse Oximeter] Pulse Rate [Right Pulse Oximeter] Pulse Rate [orthos tatic lying Left P ulse Oximeter] Pulse Rate [orthos tatic sitting Left Pulse Oximeter] Pulse Rate [orthos tatic standing Lef t Pulse Oximeter] Respiratory Rate Blood Pressure Blood Pressure [Ri ght Arm] Blood Pressure [Ri ght Upper Arm] Blood Pressure [or thostatic lying Ri ght Arm] Blood Pressure [or thostatic sitting Right Arm] Blood Pressure [or thostatic standing Right Arm] Pulse Oximetry 99 98 97 Oxygen Delivery Wi thod 03/30/23 04:47 03/30/23 04:52 03/30/23 04:57 Temperature Pulse Rate Pulse Rate [Pulse Oximeter] Pulse Rate [Right Pulse Oximeter] Pulse Rate [orthos tatic lying Left P ulse Oximeter] Pulse Rate [orthos tatic sitting Left Pulse Oximeter] Pulse Rate [orthos tatic standing Lef t Pulse Oximeter] Respiratory Rate Blood Pressure Blood Pressure [Ri ght Arm] Blood Pressure [Ri ght Upper Arm] Blood Pressure [or thostatic lying Ri ght Arm] Blood Pressure [or thostatic sitting Right Arm] Blood Pressure [or thostatic standing Right Arm] Pulse Oximetry 97 98 98 Oxygen Delivery Wi thod 03/30/23 05:02 03/30/23 05:07 03/30/23 05:12 Temperature Pulse Rate Pulse Rate [Pulse Oximeter] Pulse Rate [Right Pulse Oximeter] Pulse Rate [orthos tatic lying Left P ulse Oximeter] Pulse Rate [orthos tatic sitting Left Pulse Oximeter] Pulse Rate [orthos tatic standing Lef t Pulse Oximeter] Respiratory Rate Blood Pressure Blood Pressure [Ri ght Arm] Blood Pressure [Ri ght Upper Arm] Blood Pressure [or thostatic lying Ri ght Arm] Blood Pressure [or thostatic sitting Right Arm] Blood Pressure [or thostatic standing Right Arm] Pulse Oximetry 97 98 97 Oxygen Delivery Wi thod 03/30/23 05:17 03/30/23 05:22 03/30/23 05:27 Temperature Pulse Rate Pulse Rate [Pulse Oximeter] Pulse Rate [Right Pulse Oximeter] Pulse Rate [orthos tatic lying Left P ulse Oximeter] Pulse Rate [orthos tatic sitting Left Pulse Oximeter] Pulse Rate [orthos tatic standing Lef t Pulse Oximeter] Respiratory Rate Blood Pressure Blood Pressure [Ri ght Arm] Blood Pressure [Ri ght Upper Arm] Blood Pressure [or thostatic lying Ri ght Arm] Blood Pressure [or thostatic sitting Right Arm] Blood Pressure [or thostatic standing Right Arm] Pulse Oximetry 99 98 98 Oxygen Delivery Me thod 03/30/23 05:30 03/30/23 05:32 03/30/23 05:37 Temperature 98.0 F Pulse Rate Pulse Rate [Pulse Oximeter] 85 Pulse Rate [Right Pulse Oximeter] Pulse Rate [orthos tatic lying Left P ulse Oximeter] Pulse Rate [orthos tatic sitting Left Pulse Oximeter] Pulse Rate [orthos tatic standing Lef t Pulse Oximeter] Respiratory Rate 18 Blood Pressure Blood Pressure [Ri ght Arm] 99/56 L Blood Pressure [Ri ght Upper Arm] Blood Pressure [or thostatic lying Ri ght Arm] Blood Pressure [or thostatic sitting Right Arm] Blood Pressure [or thostatic standing Right Arm] Pulse Oximetry 98 98 98 Oxygen Delivery Wi thod Room Air 03/30/23 05:42 03/30/23 05:47 03/30/23 05:52 Temperature Pulse Rate Pulse Rate [Pulse Oximeter] Pulse Rate [Right Pulse Oximeter] Pulse Rate [orthos tatic lying Left P ulse Oximeter] Pulse Rate [orthos tatic sitting Left Pulse Oximeter] Pulse Rate [orthos tatic standing Lef t Pulse Oximeter] Respiratory Rate Blood Pressure Blood Pressure [Ri ght Arm] Blood Pressure [Ri ght Upper Arm] Blood Pressure [or thostatic lying Ri ght Arm] Blood Pressure [or thostatic sitting Right Arm] Blood Pressure [or thostatic standing Right Arm] Pulse Oximetry 98 98 98 Oxygen Delivery Wi thod 03/30/23 05:57 03/30/23 06:00 03/30/23 06:02 Temperature 97.9 F Pulse Rate Pulse Rate [Pulse Oximeter] 85 Pulse Rate [Right Pulse Oximeter] Pulse Rate [orthos tatic lying Left P ulse Oximeter] Pulse Rate [orthos tatic sitting Left Pulse Oximeter] Pulse Rate [orthos tatic standing Lef t Pulse Oximeter] Respiratory Rate 20 Blood Pressure Blood Pressure [Ri ght Arm] 98/59 L Blood Pressure [Ri ght Upper Arm] Blood Pressure [or thostatic lying Ri ght Arm] Blood Pressure [or thostatic sitting Right Arm] Blood Pressure [or thostatic standing Right Arm] Pulse Oximetry 98 99 99 Oxygen Delivery Wi thod Room Air 03/30/23 06:07 03/30/23 06:12 03/30/23 06:17 Temperature Pulse Rate Pulse Rate [Pulse Oximeter] Pulse Rate [Right Pulse Oximeter] Pulse Rate [orthos tatic lying Left P ulse Oximeter] Pulse Rate [orthos tatic sitting Left Pulse Oximeter] Pulse Rate [orthos tatic standing Lef t Pulse Oximeter] Respiratory Rate Blood Pressure Blood Pressure [Ri ght Arm] Blood Pressure [Ri ght Upper Arm] Blood Pressure [or thostatic lying Ri ght Arm] Blood Pressure [or thostatic sitting Right Arm] Blood Pressure [or thostatic standing Right Arm] Pulse Oximetry 98 98 98 Oxygen Delivery Wi thod 03/30/23 06:34 03/30/23 06:39 03/30/23 06:44 Temperature Pulse Rate Pulse Rate [Pulse Oximeter] Pulse Rate [Right Pulse Oximeter] Pulse Rate [orthos tatic lying Left P ulse Oximeter] Pulse Rate [orthos tatic sitting Left Pulse Oximeter] Pulse Rate [orthos tatic standing Lef t Pulse Oximeter] Respiratory Rate Blood Pressure Blood Pressure [Ri ght Arm] Blood Pressure [Ri ght Upper Arm] Blood Pressure [or thostatic lying Ri ght Arm] Blood Pressure [or thostatic sitting Right Arm] Blood Pressure [or thostatic standing Right Arm] Pulse Oximetry 98 98 97 Oxygen Delivery Wi thod 03/30/23 06:49 03/30/23 06:54 03/30/23 06:59 Temperature Pulse Rate Pulse Rate [Pulse Oximeter] Pulse Rate [Right Pulse Oximeter] Pulse Rate [orthos tatic lying Left P ulse Oximeter] Pulse Rate [orthos tatic sitting Left Pulse Oximeter] Pulse Rate [orthos tatic standing Lef t Pulse Oximeter] Respiratory Rate Blood Pressure Blood Pressure [Ri ght Arm] Blood Pressure [Ri ght Upper Arm] Blood Pressure [or thostatic lying Ri ght Arm] Blood Pressure [or thostatic sitting Right Arm] Blood Pressure [or thostatic standing Right Arm] Pulse Oximetry 98 99 99 Oxygen Delivery Wi thod 03/30/23 07:04 03/30/23 07:09 03/30/23 07:14 Temperature Pulse Rate Pulse Rate [Pulse Oximeter] Pulse Rate [Right Pulse Oximeter] Pulse Rate [orthos tatic lying Left P ulse Oximeter] Pulse Rate [orthos tatic sitting Left Pulse Oximeter] Pulse Rate [orthos tatic standing Lef t Pulse Oximeter] Respiratory Rate Blood Pressure Blood Pressure [Ri ght Arm] Blood Pressure [Ri ght Upper Arm] Blood Pressure [or thostatic lying Ri ght Arm] Blood Pressure [or thostatic sitting Right Arm] Blood Pressure [or thostatic standing Right Arm] Pulse Oximetry 99 99 98 Oxygen Delivery Wi thod 03/30/23 07:19 03/30/23 07:24 03/30/23 07:29 Temperature Pulse Rate Pulse Rate [Pulse Oximeter] Pulse Rate [Right Pulse Oximeter] Pulse Rate [orthos tatic lying Left P ulse Oximeter] Pulse Rate [orthos tatic sitting Left Pulse Oximeter] Pulse Rate [orthos tatic standing Lef t Pulse Oximeter] Respiratory Rate Blood Pressure Blood Pressure [Ri ght Arm] Blood Pressure [Ri ght Upper Arm] Blood Pressure [or thostatic lying Ri ght Arm] Blood Pressure [or thostatic sitting Right Arm] Blood Pressure [or thostatic standing Right Arm] Pulse Oximetry 98 98 98 [facility] 07:34 03/30/23 07:39 03/30/23 07:44 Temperature Pulse Rate Pulse Rate [Pulse Oximeter] Pulse Rate [Right Pulse Oximeter] Pulse Rate [orthos tatic lying Left P ulse Oximeter] Pulse Rate [orthos tatic sitting Left Pulse Oximeter] Pulse Rate [orthos tatic standing Lef t Pulse Oximeter] Respiratory Rate Blood Pressure Blood Pressure [Ri ght Arm] Blood Pressure [Ri ght Upper Arm] Blood Pressure [or thostatic lying Ri ght Arm] Blood Pressure [or thostatic sitting Right Arm] Blood Pressure [or thostatic standing Right Arm] Pulse Oximetry 99 99 98 [facility] 07:49 03/30/23 07:54 03/30/23 07:59 Temperature Pulse Rate Pulse Rate [Pulse Oximeter] Pulse Rate [Right Pulse Oximeter] Pulse Rate [orthos tatic lying Left P ulse Oximeter] Pulse Rate [orthos tatic sitting Left Pulse Oximeter] Pulse Rate [orthos tatic standing Lef t Pulse Oximeter] Respiratory Rate Blood Pressure Blood Pressure [Ri ght Arm] Blood Pressure [Ri ght Upper Arm] Blood Pressure [or thostatic lying Ri ght Arm] Blood Pressure [or thostatic sitting Right Arm] Blood Pressure [or thostatic standing Right Arm] Pulse Oximetry 99 97 99 Oxygen Delivery Me thod 03/30/23 08:00 03/30/23 08:04 03/30/23 08:09 Temperature 97.8 F Pulse Rate Pulse Rate [Pulse Oximeter] 95 Pulse Rate [Right Pulse Oximeter] Pulse Rate [orthos tatic lying Left P ulse Oximeter] Pulse Rate [orthos tatic sitting Left Pulse Oximeter] Pulse Rate [orthos tatic standing Lef t Pulse Oximeter] Respiratory Rate 20 Blood Pressure Blood Pressure [Ri ght Arm] 93/57 L Blood Pressure [Ri ght Upper Arm] Blood Pressure [or thostatic lying Ri ght Arm] Blood Pressure [or thostatic sitting Right Arm] Blood Pressure [or thostatic standing Right Arm] Pulse Oximetry 98 98 98 [facility] 03/30/23 08:14 03/30/23 08:19 03/30/23 08:22 Temperature Pulse Rate Pulse Rate [Pulse Oximeter] Pulse Rate [Right Pulse Oximeter] Pulse Rate [orthos tatic lying Left P ulse Oximeter] Pulse Rate [orthos tatic sitting Left Pulse Oximeter] Pulse Rate [orthos tatic standing Lef t Pulse Oximeter] Respiratory Rate 20 Blood Pressure Blood Pressure [Ri ght Arm] Blood Pressure [Ri ght Upper Arm] Blood Pressure [or thostatic lying Ri ght Arm] Blood Pressure [or thostatic sitting Right Arm] Blood Pressure [or thostatic standing Right Arm] Pulse Oximetry 98 99 98 [facility] 03/30/23 08:24 03/30/23 08:29 03/30/23 08:34 Temperature Pulse Rate Pulse Rate [Pulse Oximeter] Pulse Rate [Right Pulse Oximeter] Pulse Rate [orthos tatic lying Left P ulse Oximeter] Pulse Rate [orthos tatic sitting Left Pulse Oximeter] Pulse Rate [orthos tatic standing Lef t Pulse Oximeter] Respiratory Rate Blood Pressure Blood Pressure [Ri ght Arm] Blood Pressure [Ri ght Upper Arm] Blood Pressure [or thostatic lying Ri ght Arm] Blood Pressure [or thostatic sitting Right Arm] Blood Pressure [or thostatic standing Right Arm] Pulse Oximetry 99 99 99 Oxygen Delivery Wi thod 03/30/23 08:39 03/30/23 08:44 03/30/23 08:49 Temperature Pulse Rate Pulse Rate [Pulse Oximeter] Pulse Rate [Right Pulse Oximeter] Pulse Rate [orthos tatic lying Left P ulse Oximeter] Pulse Rate [orthos tatic sitting Left Pulse Oximeter] Pulse Rate [orthos tatic standing Lef t Pulse Oximeter] Respiratory Rate Blood Pressure Blood Pressure [Ri ght Arm] Blood Pressure [Ri ght Upper Arm] Blood Pressure [or thostatic lying Ri ght Arm] Blood Pressure [or thostatic sitting Right Arm] Blood Pressure [or thostatic standing Right Arm] Pulse Oximetry 99 98 99 Oxygen Delivery Me thod 03/30/23 08:54 03/30/23 08:59 03/30/23 09:04 Temperature Pulse Rate Pulse Rate [Pulse Oximeter] Pulse Rate [Right Pulse Oximeter] Pulse Rate [orthos tatic lying Left P ulse Oximeter] Pulse Rate [orthos tatic sitting Left Pulse Oximeter] Pulse Rate [orthos tatic standing Lef t Pulse Oximeter] Respiratory Rate Blood Pressure Blood Pressure [Ri ght Arm] Blood Pressure [Ri ght Upper Arm] Blood Pressure [or thostatic lying Ri ght Arm] Blood Pressure [or thostatic sitting Right Arm] Blood Pressure [or thostatic standing Right Arm] Pulse Oximetry 97 98 98 Oxygen Delivery Me thod 03/30/23 09:09 03/30/23 09:14 03/30/23 11:00 Temperature 98.3 F Pulse Rate Pulse Rate [Pulse Oximeter] 91 Pulse Rate [Right Pulse Oximeter] Pulse Rate [orthos tatic lying Left P ulse Oximeter] Pulse Rate [orthos tatic sitting Left Pulse Oximeter] Pulse Rate [orthos tatic standing Lef t Pulse Oximeter] Respiratory Rate 20 Blood Pressure Blood Pressure [Ri ght Arm] 113/73 Blood Pressure [Ri ght Upper Arm] Blood Pressure [or thostatic lying Ri ght Arm] Blood Pressure [or thostatic sitting Right Arm] Blood Pressure [or thostatic standing Right Arm] Pulse Oximetry 98 98 98 Oxygen Delivery Me thod Room Air Labs Labs: Laboratory Results - last 24 hr 03/29/23 03/29/23 03/29/23 16:14 16:25 16:40 WBC 11.87 H RBC 4.36 Hgb 10.8 L Hct 35.6 MCV 82 MCH 25 L MCHC 30 L RDW Coeff of Martha 15.6 H Plt Count 252 Neut % (Auto) 80.3 H Lymph % (Auto) 13.4 L Frontier % (Auto) 4.8 Eos % (Auto) 0.1 Baso % (Auto) 0.1 Neut # (Auto) 9.50 H Lymph # (Auto) 1.60 Frontier # (Auto) 0.60 Eos # (Auto) 0.00 Baso # (Auto) 0.00 Abs Immat Gran (auto) 0.20 Imm/Tot Granulo (auto) 1.3 VBG pH VBG pCO2 VBG pO2 VBG HCO3 Sodium 136 Potassium 4.0 Chloride 111 Carbon Dioxide < 5 L* Anion Gap 20 H BUN 6 Creatinine 0.7 Estimated Creat Clear 114.01 Estimated GFR 122 Glucose 76 Lactate 0.8 Calcium 9.2 Phosphorus Magnesium Total Bilirubin 0.8 Direct Bilirubin 0.3 AST 30 ALT 16 Alkaline Phosphatase 150 C-Reactive Protein 1.3 H Total Protein 8.8 H Albumin 4.2 Lipase 165 Procalcitonin 0.07 Urine Color Yellow Urine Appearance Slightly Cloudy A Urine pH 5.5 Ur Specific [place] >= 1.030 Urine Protein 1+ A Urine Glucose (UA) Negative Urine Ketones 4+ A Urine Blood Negative Urine Nitrite Negative Urine Bilirubin 1+ A Urine Urobilinogen 1.0 Ur Leukocyte Esterase Negative Urine RBC 0-2 Urine WBC 0-2 Ur Squamous Epith Cells Few Urine Bacteria Few A Urine Opiates Screen Negative Ur Oxycodone Screen Negative Urine Methadone Screen Negative Ur Propoxyphene Screen Negative Ur Barbiturates Screen Negative U Tricyclic Antidepress Negative Ur Phencyclidine Scrn Negative Ur Amphetamines Screen Negative U Methamphetamines Scrn Negative U Benzodiazepines Scrn Negative Urine Cocaine Screen Negative U Marijuana (THC) Screen Negative Ur Drug Screen Comment See Note Ethyl Alcohol < 0.01 L SARS-CoV-2 (PCR) Negative SARS-CoV-2 Monoscreen Negative Influenza Type A (PCR) Negative PCR FLU A Influenza Type B (PCR) Negative PCR FLU B RSV (PCR) Negative PCR RSV Stool H. pylori Ag Lab Acknowledgement Test Added POC Troponin I 03/29/23 03/29/23 03/29/23 17:12 17:54 17:55 WBC RBC Hgb Hct MCV MCH MCHC RDW Coeff of Martha Plt Count Neut % (Auto) Lymph % (Auto) Frontier % (Auto) Eos % (Auto) Baso % (Auto) Neut # (Auto) Lymph # (Auto) Frontier # (Auto) Eos # (Auto) Baso # (Auto) Abs Immat Gran (auto) Imm/Tot Granulo (auto) VBG pH 7.170 L* VBG pCO2 20 L VBG pO2 41.4 VBG HCO3 7 L Sodium Potassium Chloride Carbon Dioxide Anion Gap BUN Creatinine Estimated Creat Clear Estimated GFR Glucose Lactate Calcium Phosphorus Magnesium Total Bilirubin Direct Bilirubin AST ALT Alkaline Phosphatase C-Reactive Protein Total Protein Albumin Lipase Procalcitonin Urine Color Urine Appearance Urine pH Ur Specific [place] Urine Protein Urine Glucose (UA) Urine Ketones Urine Blood Urine Nitrite Urine Bilirubin Urine Urobilinogen Ur Leukocyte Esterase Urine RBC Urine WBC Ur Squamous Epith Cells Urine Bacteria Urine Opiates Screen Ur Oxycodone Screen Urine Methadone Screen Ur Propoxyphene Screen Ur Barbiturates Screen U Tricyclic Antidepress Ur Phencyclidine Scrn Ur Amphetamines Screen U Methamphetamines Scrn U Benzodiazepines Scrn Urine Cocaine Screen U Marijuana (THC) Screen Ur Drug Screen Comment Ethyl Alcohol SARS-CoV-2 (PCR) Monoscreen Influenza Type A (PCR) Influenza Type B (PCR) RSV (PCR) Stool H. pylori Ag Lab Acknowledgement Test Added POC Troponin I 0.00 L 03/29/23 03/29/23 03/29/23 20:09 21:04 23:24 WBC RBC Hgb Hct MCV MCH MCHC RDW Coeff of Martha Plt Count Neut % (Auto) Lymph % (Auto) Frontier % (Auto) Eos % (Auto) Baso % (Auto) Neut # (Auto) Lymph # (Auto) Frontier # (Auto) Eos # (Auto) Baso # (Auto) Abs Immat Gran (auto) Imm/Tot Granulo (auto) VBG pH 7.224 L* 7.185 L* 7.313 L VBG pCO2 < 15 L* 20 L 17 L* VBG pO2 62.6 H 36.9 124.0 H VBG HCO3 Not Reportable 7 L 9 L Sodium 137 137 137 Potassium 4.0 4.0 3.4 L Chloride 115 H 114 119 H Carbon Dioxide < 5 L* 6 L* 7 L* Anion Gap 17 H 17 H 11 BUN 5 5 5 Creatinine 0.6 0.6 0.6 Estimated Creat Clear 133.01 133.01 133.01 Estimated GFR 127 127 127 Glucose 69 145 H 90 Lactate Calcium 8.7 8.7 8.0 L Phosphorus 2.2 L Magnesium 1.9 Total Bilirubin Direct Bilirubin AST ALT Alkaline Phosphatase C-Reactive Protein Total Protein Albumin 3.0 L Lipase Procalcitonin Urine Color Urine Appearance Urine pH Ur Specific [place] Urine Protein Urine Glucose (UA) Urine Ketones Urine Blood Urine Nitrite Urine Bilirubin Urine Urobilinogen Ur Leukocyte Esterase Urine RBC Urine WBC Ur Squamous Epith Cells Urine Bacteria Urine Opiates Screen Ur Oxycodone Screen Urine Methadone Screen Ur Propoxyphene Screen Ur Barbiturates Screen U Tricyclic Antidepress Ur Phencyclidine Scrn Ur Amphetamines Screen U Methamphetamines Scrn U Benzodiazepines Scrn Urine Cocaine Screen U Marijuana (THC) Screen Ur Drug Screen Comment Ethyl Alcohol SARS-CoV-2 (PCR) Monoscreen Influenza Type A (PCR) Influenza Type B (PCR) RSV (PCR) Stool H. pylori Ag Lab Acknowledgement Test Added POC Troponin I 03/29/23 03/30/23 03/30/23 Unknown 01:40 [employer] 03:45 WBC 8.73 RBC 3.26 L Hgb 8.2 L Hct 26.0 L MCV 80 MCH 25 L MCHC 32 RDW Coeff of Martha Plt Count 196 Neut % (Auto) Lymph % (Auto) Frontier % (Auto) Eos % (Auto) Baso % (Auto) Neut # (Auto) Lymph # (Auto) Frontier # (Auto) Eos # (Auto) Baso # (Auto) Abs Immat Gran (auto) Imm/Tot Granulo (auto) VBG pH 7.325 7.365 VBG pCO2 19 L* 20 L VBG pO2 62.8 H 144.0 H VBG HCO3 10 L 11 L Sodium 137 137 Potassium 4.0 3.6 Chloride 119 H 119 H Carbon Dioxide 8 L* 10 L Anion Gap 10 8 BUN 4 L 4 L Creatinine 0.5 0.5 Estimated Creat Clear 159.62 159.62 Estimated GFR 133 133 Glucose 159 H 87 Lactate Calcium 8.0 L 8.1 L Phosphorus 2.2 L 2.2 L Magnesium 1.9 1.9 Total Bilirubin Direct Bilirubin AST ALT Alkaline Phosphatase C-Reactive Protein Total Protein Albumin 3.0 L 2.8 L Lipase Procalcitonin Urine Color Urine Appearance Urine pH Ur Specific [place] Urine Protein Urine Glucose (UA) Urine Ketones Urine Blood Urine Nitrite Urine Bilirubin Urine Urobilinogen Ur Leukocyte Esterase Urine RBC Urine WBC Ur Squamous Epith Cells Urine Bacteria Urine Opiates Screen Ur Oxycodone Screen Urine Methadone Screen Ur Propoxyphene Screen Ur Barbiturates Screen U Tricyclic Antidepress Ur Phencyclidine Scrn Ur Amphetamines Screen U Methamphetamines Scrn U Benzodiazepines Scrn Urine Cocaine Screen U Marijuana (THC) Screen Ur Drug Screen Comment Ethyl Alcohol SARS-CoV-2 (PCR) Monoscreen Influenza Type A (PCR) Influenza Type B (PCR) RSV (PCR) Stool H. pylori Ag POSITIVE A Lab Acknowledgement POC Troponin I 03/30/23 03/30/23 07:51 12:18 WBC RBC Hgb Hct MCV MCH MCHC RDW Coeff of Martha Plt Count Neut % (Auto) Lymph % (Auto) [place] % (Auto) Eos % (Auto) Baso % (Auto) Neut # (Auto) Lymph # (Auto) [place] # (Auto) Eos # (Auto) Baso # (Auto) Abs Immat Gran (auto) Imm/Tot Granulo (auto) VBG pH 7.358 7.382 VBG pCO2 24 L 22 L VBG pO2 35.2 65.1 H VBG HCO3 13 L 13 L Sodium 137 Potassium 3.7 Chloride 120 H Carbon Dioxide 12 L Anion Gap 5 L BUN 3 L Creatinine 0.5 Estimated Creat Clear 159.62 Estimated GFR 133 Glucose 86 Lactate Calcium 8.3 L Phosphorus 2.3 L Magnesium 1.9 Total Bilirubin Direct Bilirubin AST ALT Alkaline Phosphatase C-Reactive Protein Total Protein Albumin 2.9 L Lipase Procalcitonin Urine Color Urine Appearance Urine pH Ur Specific [place] Urine Protein Urine Glucose (UA) Urine Ketones Urine Blood Urine Nitrite Urine Bilirubin Urine Urobilinogen Ur Leukocyte Esterase Urine RBC Urine WBC Ur Squamous Epith Cells Urine Bacteria Urine Opiates Screen Ur Oxycodone Screen Urine Methadone Screen Ur Propoxyphene Screen Ur Barbiturates Screen U Tricyclic Antidepress Ur Phencyclidine Scrn Ur Amphetamines Screen U Methamphetamines Scrn U Benzodiazepines Scrn Urine Cocaine Screen U Marijuana (THC) Screen Ur Drug Screen Comment Ethyl Alcohol SARS-CoV-2 (PCR) Monoscreen Influenza Type A (PCR) Influenza Type B (PCR) RSV (PCR) Stool H. pylori Ag Lab Acknowledgement POC Troponin I
[2023-03-30 12:48] LABS: Chloride* 116 mmol/L (96-114); Potassium* 3.4 mmol/L (3.6-5.1); Sodium* 135 mmol/L (135-149)
[2023-03-30 12:51] LABS: Anion Gap 8 mEq/L (7-15); Carbon Dioxide* 11 mmol/L (20-32); Creatinine* 0.4 mg/dL (0.5-1.5); Est. Creatinine Clearance* 199.52; Estimated Glomerular Filt Rate 140 ml/min
[2023-03-30 12:52] LABS: Blood Urea Nitrogen* 2 mg/dL (5-24); Calcium* 8.3 mg/dL (8.4-10.6); Glucose* 91 mg/dL (60-115)
[2023-03-30 14:35] LABS: Fecal Occult Blood* Negative (Negative)
[2023-03-30] MEDS: FAMOTIDINE 20 MG TABLET PO ×2 (15:28→21:41)
[2023-03-30] MEDS: SODIUM CHLORIDE 0.9 % (FLUSH) 10 ML SYRINGE 5 ML IVF (21:40)
[2023-03-31] MEDS: METOCLOPRAMIDE HCL 5 MG/ML INJ 10 MG IVP ×2 (01:34→09:17)
[2023-03-31] MEDS: SODIUM CHLORIDE 0.9 % (FLUSH) 10 ML SYRINGE 5 ML IVF ×2 (01:34→09:17)
[2023-03-31 03:00] VITALS: BP 92/59; PULSE 91; RESP 18; TEMP 36.7; O2SAT 98
[2023-03-31 06:25] LABS: Basophils Absolute Auto 0.01 K/uL (0.00-0.30); Basophils Percent Auto 0.2 % (0.0-3.0); Eosinophils Absolute Auto 0.03 K/uL (0.00-0.50); Eosinophils Percent Auto 0.5 % (0.0-7.0); Hematocrit 28.2 % (33.0-51.0); Hemoglobin* 8.7 gm/dL (12.0-16.0); Immature Granulocytes Abs Auto 0.05 K/uL (0.00-0.30); Immature Granulocytes Pct Auto 0.8 %; Lymphocytes Absolute Auto 1.55 K/uL (0.90-2.90); Lymphocytes Percent Auto 23.9 % (20-44); Mean Corpuscular HGB Conc 31 gm/dL (32-36); Mean Corpuscular Hemoglobin 25 pg (26-34); Mean Corpuscular Volume 80 fL (80-100); Monocytes Percent Auto 5.5 % (0.0-11.0); Neutrophils Absolute Auto 4.49 K/uL (1.7-7.0); Neutrophils Percent Auto 69.1 % (42.0-72.0); Platelet Count* 202 K/uL (140-440); Red Blood Count 3.53 m/uL (4.00-5.20); White Blood Count* 6.49 K/uL (4.50-11.00)
[2023-03-31 06:32] LABS: Slide Review Reflex No
[2023-03-31 06:38] LABS: Chloride* 116 mmol/L (96-114); Potassium* 3.3 mmol/L (3.6-5.1); Sodium* 137 mmol/L (135-149)
[2023-03-31 06:41] LABS: Anion Gap 10 mEq/L (7-15); Carbon Dioxide* 11 mmol/L (20-32); Creatinine* 0.5 mg/dL (0.5-1.5); Est. Creatinine Clearance* 159.62; Estimated Glomerular Filt Rate 133 ml/min
[2023-03-31 06:42] LABS: Calcium* 8.3 mg/dL (8.4-10.6); Glucose* 74 mg/dL (60-115)
[2023-03-31 06:53] LABS: Blood Urea Nitrogen* < 2 mg/dL (5-24)
[2023-03-31 07:00] VITALS: BP 105/70; PULSE 89; PULSE 99; RESP 18; TEMP 36.8; O2SAT 99
[2023-03-31] MEDS: POTASSIUM BICARB 25 MEQ EFFERVESCENT TAB PO (09:17)
[2023-03-31] MEDS: FAMOTIDINE 20 MG TABLET PO (09:17)
--- NOTE | 2023-03-31 09:32 | PC.OBNST ---
NST Note NST Note Start: 03/29/23 18:19 Freq: ONCE Status: Active Protocol: Document 03/31/23 09:30 [facility] (Rec: 03/31/23 09:31 [facility] [id number]) NST Note 2 Para (# of births) 1 EDC 05/04/[birth year] Gestational Age In Weeks & Days 35 Weeks & 1 Days Patient Presented with Complaint(s) of Nausea and vomiting,Other Other Complaints admitted to CCU for hyperemesis leading to metabolic acidosis Reactive Yes Appropriate for Gestational Age Yes NUVIA López Date 03/31/23 Reactive Yes Appropriate for Gestational Age Yes NUVIA Gil Date 03/31/23 OB NST charge Yes Complete NST Note via Write Note Yes The provider's electronic signature indicates the NST is reactive/appropriate for gestational age. *Note to provider: If an addendum is required, open the patient's chart and click on the note under the Nurse/Allied Health tab.
--- NOTE | 2023-03-31 09:48 | PM.DS1 ---
DS: Providers Provider Date Seen: 03/31/23 Date of admission: 03/29/23 21:25 Primary care physician: Not a Local Provider Admitting Clinician: Yosi Duron MD Consults: 03/29/23 21:22 Consult to Nutrition [CONS] Routine Comment: Reason for consult:: Vomiting > 3 days Attending Physician on discharge: Yosi Duron MD Date of Discharge: 03/31/23 DS: Diagnosis Discharge Diagnosis (1) H. pylori infection: Status: Acute Problem details: H pylori stool antigen test was ordered for persistent nausea and vomiting and returned positive. Stool guaiac test was negative. Patient was asymptomatic at the time of discharge after starting on famotidine BID. (2) Anemia complicating : Status: Acute Problem details: Hgb on admission was mildly low at 10.4, but precipitously dropped to 8.2, settling at 8.4 on discharge suspect due to fluid dilution as guaiac was negative. (3) : Status: Acute Problem details: - on 03/31/2023 35w1d gestation by LMP - OB monitored heart tones which were reassuring in hospital (4) Ketoacidosis: Status: Acute Problem details: - Euglycemic ketoacidosis, due to hypovolemia and - Does not have diagnosis of diabetes mellitus (5) Nausea & vomiting: Status: Acute Problem details: Suspect initially secondary to viral illness vs H pylori infection leading to acidosis which likely perpetuated nausea and vomiting. Patient improved significantly with IVF resuscitation. No nausea/vomiting at time of discharge (6) Metabolic acidosis: Status: Acute Problem details: - euglycemic ketoacidosis, suspect initially triggered by acute illness, then perpetuated with ongoing N/V due to acidosis (7) Acute dehydration: Status: Acute Problem details: Secondary to poor PO intake in setting of nausea and vomiting. DS: Summary Hospital Course Hospital Course: Patient presented to the ER with 1 week of poor PO intake, nausea and vomiting. She had a fever 1 week prior to admission which resolved, but nausea and vomiting persisted to the point where she had minimal PO intake for about a week. She was seen the day prior to admission and treated with 1L IVF, but returned the following day with ongoing symptoms. She was initially admitted to the L&D floor as she was 34w6d gestation. Unfortunately, she further declined and was noted to have severe anion gap metabolic acidosis. After further workup, her presentation was thought to be secondary to euglycemic DKA (starvation ketosis) as she does not have diabetes. She was treated with insulin gtt and IVF with D5LR. She had rapid improvement and anion gap closed. Her acidosis resolved and her nausea improved. She was able to advance to a normal diet with no further symptoms. Bicarb and potassium are still low on day of discharge, but she is being given potassium replacement prior to discharge. SHe has follow up with her midwifery group tomorrow and can have labs rechecked at that time. She was noted to have anemia while here, which worsened with fluid resuscitation and was diagnosed with H pylori infection which may have exacerbated her nausea and vomiting. Due to the drop in hgb and the positive H pylori stool ag test, we did check a fecal occult blood which was fortunately negative, so seems unlikely to have a clinically significant GIB. She was followed by OB throughout her stay, initially with continuous monitoring until acidosis resolved and there were no concerns for complications. Status at Discharge Functional status at discharge: independent ambulation Overall status at discharge: patient is back to baseline Time Spent with Patient Time attestation: Total time spent providing and/or coordinating discharge services: Time spent: Greater than 30 minutes Exam Narrative: Exam Narrative: General: Well appearing, no distress HEENT: NCAT, MMM Resp: CTAB, no wheezes or crackles CV: RRR, soft systolic murmur present Abdomen: Normal bowel sounds, gravid, non-tender Neuro: No focal or lateralizing deficits appreciated Const: Vital Signs, click to edit/add: Vital Signs - 24 hr 03/30/23 11:00 03/30/23 15:00 03/30/23 15:00 Temperature 98.3 F 98.1 F Pulse Rate [Pulse Oximeter] 91 100 Pulse Rate [orthos tatic lying Left P ulse Oximeter] Pulse Rate [orthos tatic sitting Left Pulse Oximeter] Pulse Rate [orthos tatic standing Lef t Pulse Oximeter] Respiratory Rate 20 20 20 Blood Pressure [Ri ght Arm] 113/73 108/73 Blood Pressure [or thostatic lying Ri ght Arm] Blood Pressure [or thostatic sitting Right Arm] Blood Pressure [or thostatic standing Right Arm] Pulse Oximetry 98 97 97 Oxygen Delivery Me thod Room Air Room Air Room Air 03/30/23 15:53 03/30/23 15:55 03/30/23 21:40 Temperature 98.0 F Pulse Rate [Pulse Oximeter] 100 91 Pulse Rate [orthos tatic lying Left P ulse Oximeter] 94 Pulse Rate [orthos tatic sitting Left Pulse Oximeter] 108 H Pulse Rate [orthos tatic standing Lef t Pulse Oximeter] 107 H Respiratory Rate 20 16 Blood Pressure [Ri ght Arm] 92/53 L Blood Pressure [or thostatic lying Ri ght Arm] 101/73 Blood Pressure [or thostatic sitting Right Arm] 124/72 Blood Pressure [or thostatic standing Right Arm] 107/80 Pulse Oximetry 97 Oxygen Delivery Me thod Room Air 03/30/23 22:11 03/30/23 22:11 03/30/23 23:10 Temperature Pulse Rate [Pulse Oximeter] 91 Pulse Rate [orthos tatic lying Left P ulse Oximeter] Pulse Rate [orthos tatic sitting Left Pulse Oximeter] Pulse Rate [orthos tatic standing Lef t Pulse Oximeter] Respiratory Rate 16 18 Blood Pressure [Ri ght Arm] Blood Pressure [or thostatic lying Ri ght Arm] Blood Pressure [or thostatic sitting Right Arm] Blood Pressure [or thostatic standing Right Arm] Pulse Oximetry 97 Oxygen Delivery Ia thod Room Air 03/31/23 03:00 03/31/23 07:00 03/31/23 07:00 Temperature 98.1 F Pulse Rate [Pulse Oximeter] 91 99 Pulse Rate [orthos tatic lying Left P ulse Oximeter] Pulse Rate [orthos tatic sitting Left Pulse Oximeter] Pulse Rate [orthos tatic standing Lef t Pulse Oximeter] Respiratory Rate 18 18 18 Blood Pressure [Ri ght Arm] 92/59 L Blood Pressure [or thostatic lying Ri ght Arm] Blood Pressure [or thostatic sitting Right Arm] Blood Pressure [or thostatic standing Right Arm] Pulse Oximetry 98 99 Oxygen Delivery Me thod Room Air Room Air 03/31/23 07:00 Temperature 98.3 F Pulse Rate [Pulse Oximeter] 89 Pulse Rate [orthos tatic lying Left P ulse Oximeter] Pulse Rate [orthos tatic sitting Left Pulse Oximeter] Pulse Rate [orthos tatic standing Lef t Pulse Oximeter] Respiratory Rate 18 Blood Pressure [Ri ght Arm] 105/70 Blood Pressure [or thostatic lying Ri ght Arm] Blood Pressure [or thostatic sitting Right Arm] Blood Pressure [or thostatic standing Right Arm] Pulse Oximetry 99 Oxygen Delivery Me thod Room Air DS: Data Data Completed and Pending Labs on day of discharge: Labs from last 24 hours 03/31/23 03/30/23 03/30/23 06:06 Unknown 14:28 WBC 6.49 RBC 3.53 L Hgb 8.7 L Hct 28.2 L MCV 80 MCH 25 L MCHC 31 L RDW Coeff of Martha 16.0 H Plt Count 202 Neut % (Auto) 69.1 Lymph % (Auto) 23.9 [place] % (Auto) 5.5 Eos % (Auto) 0.5 Baso % (Auto) 0.2 Neut # (Auto) 4.49 Lymph # (Auto) 1.55 [place] # (Auto) 0.40 Eos # (Auto) 0.03 Baso # (Auto) 0.01 Abs Immat Gran (auto) 0.05 Imm/Tot Granulo (auto) 0.8 VBG pH VBG pCO2 VBG pO2 VBG HCO3 Sodium 137 Potassium 3.3 L Chloride 116 H Carbon Dioxide 11 L Anion Gap 10 BUN < 2 L Creatinine 0.5 Estimated Creat Clear 159.62 Estimated GFR 133 Glucose 74 Calcium 8.3 L Stool Occult Blood Negative Stool H. pylori Ag Lab Acknowledgement Test Added 03/30/23 03/29/23 12:18 Unknown WBC RBC Hgb Hct MCV MCH MCHC RDW Coeff of Martha Plt Count Neut % (Auto) Lymph % (Auto) [place] % (Auto) Eos % (Auto) Baso % (Auto) Neut # (Auto) Lymph # (Auto) [place] # (Auto) Eos # (Auto) Baso # (Auto) Abs Immat Gran (auto) Imm/Tot Granulo (auto) VBG pH 7.382 VBG pCO2 22 L VBG pO2 65.1 H VBG HCO3 13 L Sodium 135 Potassium 3.4 L Chloride 116 H Carbon Dioxide 11 L Anion Gap 8 BUN 2 L Creatinine 0.4 L Estimated Creat Clear 199.52 Estimated GFR 140 Glucose 91 Calcium 8.3 L Stool Occult Blood Stool H. pylori Ag POSITIVE A Lab Acknowledgement Preliminary micro results at discharge 03/29/23 Unknown Urine Culture - Preliminary Urine,Clean Catch NO GROWTH AFTER 24 HOURS Discharge Plan Discharge Disposition: Home, Self-Care Date of Admission: 03/29/23 21:25 Attending Provider on Discharge: Michelle Monreal Consulting Providers: Yoanna Lewis Primary Care Provider: Provider,Not a Local Condition: Stable Anticipated Discharge Date/Time: 03/31/23 09:36 Discharge Medications: New famotidine [Acid Airline Radio Operator (famotidine)] 20 mg Tablet 20 mg PO BID 30 Days Qty: 60 0RF Continued PNV [id number] fumarate-FA [] 28 mg iron- 800 mcg tablet 1 tab PO DAILY ferrous sulfate [Huy-In-Belkys] 15 mg iron (75 mg)/mL drops 1 ml PO DAILY PRN Discharge Orders: Discharge Order (Routine); Ordered 03/31/23 Ordered By: Michelle Monreal Patient Education: Diet for Stomach Ulcers and Gastritis (GEN) Additional Instructions: Make sure to take the acid blocking medication, famotidine, twice daily. It is available over the counter, but I also sent a prescription for 1 month. Make sure you follow up with your midwifery group as scheduled tomorrow. You can discuss with them that you were admitted to the hospital with severe metabolic acidosis thought secondary to starvation ketosis. You were severely dehydrated and symptoms of nausea and vomiting were likely perpetuated by the acidosis. You were also diagnosed with H pylori infection by stool antigen test which may have contributed. Your labs are improving, but you still have anemia (hemoglobin 8.7) and low bicarb level (11), but acidosis resolved. You were treated for low Potassium, as well. I recommend that your outpatient clinic follow up on your bicarb, Potassium and hemoglobin at your follow-up. Please also tell them that you are now taking famotidine and we recommend treatment for H pylori infection after delivery, although if they feel it is safe to treat during , that would be fine. They may be able to refer you to a family practice doctor to follow along with medical issues unrelated to the . If you develop further nausea or vomiting which does not quickly resolve, please seek medical attention immediately. If you develop maroon, red, black or tarry stools, you should be seen urgently as H pylori increases the risk of ulcers which can bleed at times. Discharge Diet: Regular Follow Up Appointments: Provider,Not a Local [Primary Care Provider] - Forms: MyHealth Info Instructions
[2023-03-31 10:09] LABS: Hemoglobin A1C* 5.3 % (0-5.6)
--- NOTE | 2023-03-31 10:53 | PC.NURSE ---
Discharge: patient alert and oriented x4, denies N/V/SOB. VSS. Patient 99% on RA and tolerating a reg diet. Patient discharged to home today at 1045 accompanied by spouse. IV removed from right FA and left AC intact. Discharge instructions signed and patient verbalized understanding of instructions. Patient's belonging sheet also signed.
[2023-04-02 15:02] LABS: Beta-Hydroxybutyric Acid 59.9 mg/dL (0.0-3.0)
== END 2023-03-31 10:45 | disposition home or self-care (01) | DRG 832 ==
LOC: ED 16:30 → OB OUT 18:11 → OB 18:14 → OB OUT 21:27 → MEDSURG 21:27
PROVIDERS: Family Medicine; Obstetrics & Gynecology; Admitting Provider Internal Medicine; Emergency Provider Family Medicine; Visit Provider Internal Medicine
DX: O99.283 Endocrine, nutritional and metabolic diseases complicating pregnancy, third trimester (principal); E87.20 Acidosis, unspecified; E87.29 Other acidosis; O98.813 Other maternal infectious and parasitic diseases complicating pregnancy, third trimester; B96.81 Helicobacter pylori [H. pylori] as the cause of diseases classified elsewhere; O21.8 Other vomiting complicating pregnancy; O99.013 Anemia complicating pregnancy, third trimester; D64.9 Anemia, unspecified; E86.0 Dehydration; E86.1 Hypovolemia; Z3A.34 34 weeks gestation of pregnancy
CPT/HCPCS: 36415; 36600; 59025; 71046; 80048; 80069; 80076; 80306; 81001; 82010; 82077; 82270; 82803; 82962; 83036; 83605; 83690; 83735; 84145; 84443; 84484; 85025; 85027; 86140; 86308; 87086; 87338; 87631; 93005; 93308; 99285; A9270; J2405; J2765; J3480; J3590; J7030; J7050; J7120

== ENCOUNTER 2023-10-23 11:34 | Outpatient (CLI) | payer OTHER, SELFPAY | END 2023-10-23 11:35 | disposition home or self-care (01) | LOC: NFLDREF 11-12 06:24 | PROVIDERS: Visit Provider Advanced Practice Midwife | DX: A04.8 Other specified bacterial intestinal infections (principal) | CPT/HCPCS: 87338 ==